=== PATIENT | male | born 1940 | race Caucasian/White ===

== ENCOUNTER → 2017-06-30 13:51 | Outpatient (CLI) | payer MEDICARE, OTHER, SELFPAY ==
--- NOTE | 2017-06-30 14:06 | CA_ITS ---
PROCEDURE: 2-D M-mode and color Doppler study INDICATIONS FOR THE TEST: Chest pain COPD Heart Murmur Tobacco Smoking Palpitations Fatigue Syncope Edema HypertensionXDiabetes MellitusX Rheumatic Fever SOB ALEMAN Obesity HyperlipidemiaX Family History HD Additional History CAD,PACEMAKER,CABG PATIENT INFORMATION HEIGHT: 73 WEIGHT:210 GENDER: Male B/P:133/77 2-D/M-MODE INTERPRETATION: 2-D MEASUREMENTS OBSERVED VALUES IN CMS Right Ventricular Dimension (RVDd) 1.4 Interventricular Septum (Thickness)(IVsd) 1.0 Left Ventricular Internal Dimensions(LVIDd) 7.3 Left Ventricular Posterior Wall (Thickness)(LVPWd) 1.0 Aortic Root 3.7 Aortic Cusp Separation 1.8 Left Atrial Dimensions (LAD) 3.9 2D 1. Left atrium is mildly enlarged, left ventricle is moderately dilated, there is severely reduced left ventricular systolic function, visually estimated ejection fraction 25-30%, there is marked hypokinesis involving the mid to distal septum, anterior, anteroapical and apical wall, inferobasal wall. 2. The right atrium and right ventricle are relatively normal size and function, there is a pacemaker lead seen in the right atrium and right ventricle. 3. The aortic valve is minimally thickened and fibrosed. 4. The mitral and tricuspid valve leaflets are minimally thickened. 5. The pulmonic valve is poorly visualized. 6. No significant pericardial effusion noted. DOPPLER INTERROGATION: Doppler interrogation of the aortic, mitral and tricuspid valvular presence of mild mitral and tricuspid regurgitation, tricuspid and jet velocity is insufficient for calculation of the right ventricular systolic pressure, diastolic parameters are inconclusive. CONCLUSION: 1. Technically difficult study because of the patient's factor and poor acoustic windows 2. Mildly enlarged left atrium, moderately dilated left ventricle, visually estimated ejection fraction of 25-30% with multiple segmental wall motion abnormality described above. 3. Mild mitral and tricuspid regurgitation 4. No significant pericardial effusion noted.
[2017-09-19 07:29] LABS: POC Glucose,Bedside 103 (70-110)
== END ==
PROVIDERS: Family Provider Internal Medicine; PCP Internal Medicine; Visit Provider Physician Assistant
DX: I25.10 Atherosclerotic heart disease of native coronary artery without angina pectoris (principal); I47.2 Ventricular tachycardia
CPT/HCPCS: 82962; 93306

== ENCOUNTER 2018-02-16 15:05 | Inpatient (IN) ==
--- NOTE | 2018-02-16 15:25 | Emergency Department Note ---
ED Disposition Clinical Impression: Fever of unknown origin, Viral infection Disposition: Admitted as Observation Condition on Discharge: Fair Time of Disposition: 20:13 - Critical Care Critical Care Time: No Attestation: On 02/16/18, the high probability of a clinically significant, sudden or life threatening deterioration of the following system(s) required my full and direct attention, intervention and personal management. The time I documented below is in addition to time spent performing reported procedures but includes the following listed in this critical care notation. Medical Decision Making - Medical Records Medical records reviewed: Yes: I reviewed the patient's medical records. - Christiano Inquiry Pt receiving controlled substance: No Christiano was queried for this patient: No Vital Signs: 02/16/18 15:07 02/16/18 15:17 02/16/18 16:11 Temperature 102.4 F H 102.4 F H Temperature Source Oral Oral Pulse Rate [Left Radial] 88 88 86 Respiratory Rate 24 24 101 H Blood Pressure [Right Arm] 116/63 116/63 106/60 L Blood Pressure Mean [Right Arm] 80 80 75 Blood Pressure Source [Right Arm] Automatic Cuff Automatic Cuff Blood Pressure Position [Right Arm] Sitting Sitting Sitting 02 Sat by Pulse Oximetry 96 96 98 Oxygen Delivery Method Room Air Room Air Nasal Cannula Oxygen Flow Rate (LPM) 2 02/16/18 17:40 02/16/18 19:31 02/16/18 19:38 Temperature 99.3 F 97.7 F Temperature Source Oral Oral Pulse Rate [Left Radial] 70 67 Respiratory Rate 20 22 Blood Pressure [Right Arm] 101/46 L 93/52 L Blood Pressure Mean [Right Arm] 64 65 Blood Pressure Source [Right Arm] Automatic Cuff Automatic Cuff Blood Pressure Position [Right Arm] Sitting Supine 02 Sat by Pulse Oximetry 95 97 Oxygen Delivery Method Room Air Nasal Cannula Nasal Cannula Oxygen Flow Rate (LPM) 4 - Lab Data Lab Results 02/16/18 15:20: WBC 5.0, RBC 4.09 L, Hgb 12.5 L, Hct 38.0 L, MCV 92.9, MCH 30.6, MCHC 32.9, RDW 13.4, Plt Count 262, MPV 7.5, Neut % (Auto) 76.2, Lymph % (Auto) 13.0, [place] % (Auto) 8.3, Eos % (Auto) 2.1, Baso % (Auto) 0.3, Neut # (Auto) 3.8, Lymph # (Auto) 0.7, [place] # (Auto) 0.4, Eos # (Auto) 0.1, Baso # (Auto) 0.0 02/16/18 15:20: Sodium 143, Potassium 3.5, Chloride 103, Carbon Dioxide 25, Anion Gap 18.5 H, BUN 17, Creatinine 1.74 H, Estimated Creat Clear 41, Estimated GFR 38 L, Est GFR ( Amer) 46 L, Glucose 112 H, Calcium 8.5, Total Bilirubin 0.6, AST 23, ALT 24, Alkaline Phosphatase 69, Total Protein 7.4, Albumin 3.8, Globulin 3.6 H, Albumin/Globulin Ratio 1.1 02/16/18 15:20: Lactate 3.5 H 02/16/18 16:00: Influenza Type A Ag Negative, Influenza Type B Ag Negative 02/16/18 17:48: Urine Color Yellow, Urine Appearance Clear, Urine pH 5.5, Ur Specific [place] >= 1.030, Urine Protein Trace, Urine Glucose (UA) Negative, Urine Ketones Negative, Urine Blood Negative, Urine Nitrate Negative, Urine Bilirubin Negative, Urine Urobilinogen 0.2, Ur Leukocyte Esterase Negative, Urine WBC 5-10, Ur Squamous Epith Cells Occasional, Urine Bacteria 4+ 02/16/18 19:15: Lactate 1.7 Result diagrams: 02/16/18 15:20 02/16/18 15:20 Orders (Tests/Meds): ED MEDICATIONS Generic Name Dose Route Start Last Admin Trade Name Freq PRN Reason Stop Dose Admin Sodium Chloride 1,000 mls @ 100 mls/hr 02/16/18 15:30 02/16/18 15:28 Sod Chlor 0.9% 1000ml Bag IV 03/18/18 15:29 100 mls/hr .Q10H ANDREW Administration Ceftriaxone Sodium 1 gm/ 50 mls @ 100 mls/hr 02/16/18 19:15 02/16/18 19:21 Sodium Chloride IV 03/02/18 19:14 100 mls/hr Q24H ANDREW Administration Protocol Discontinued Medications Generic Name Dose Route Start Last Admin Trade Name Freq PRN Reason Stop Dose Admin Acetaminophen 650 mg 02/16/18 15:22 02/16/18 15:27 Acetaminophen 325mg Tab PO 02/16/18 15:23 Not Given ONCE ONE Acetaminophen 650 mg 02/16/18 15:26 02/16/18 15:28 Acetaminophen 325mg Tab PO 02/16/18 15:27 650 mg ONCE ONE Administration Ondansetron HCl 4 mg 02/16/18 15:20 02/16/18 15:28 Zofran 4mg/2ml Vial IV 02/16/18 15:21 4 mg ONCE ONE Administration ORDERS Category Date Time Status UA [Urinalysis and Microscopic] Stat Lab 02/16/18 17:48 Ordered Blood Culture Stat Micro 02/16/18 15:20 Received Urine Culture Stat Micro 02/16/18 17:48 Received Fever HPI - General Chief Complaint: Fever Stated Complaint: fever Time Seen by Provider: 02/16/18 15:22 Mode of Arrival: Ambulatory Source of Information: Patient, Spouse Limitations: No Limitations Description of Symptoms (Recalled from ER Triage Doc. by RN): to ed per squad with c/o generalized weakness, confusion, fever. report states pt woke up at 5 am with confusion and difficulty walking. cpta none. - History of Present Illness MD complaint: fever, malaise, weakness, other (confusion) Onset (ago): hour(s) (10) Temperature Source: oral Associated symptoms: nausea, vomiting Relieving factors: nothing Exacerbating factors: nothing Treatments prior to arrival fever: none - Related Data Home Medications Medication Instructions Recorded Confirmed Bisoprolol Fumarate [Bisoprolol 2.5 mg PO DAILY 02/16/18 02/16/18 5mg Tablet] Metformin HCl 500 mg PO BID 02/16/18 02/16/18 Simvastatin 40 mg PO DAILY 02/16/18 02/16/18 levETIRAcetam [Levetiracetam] 750 mg PO BID 02/16/18 02/16/18 Allergies Allergy/AdvReac Type Severity Reaction Status Date / Time No Known Allergies Allergy Verified 02/16/18 15:16 [facility] History I have reviewed the patient's past medical history: Yes - Social History Alcohol Intake: never - Psychiatric History Expresses thoughts of harming self/others: None Suicide Plan Description: No Plan ROS Obtained: Yes All systems reviewed & no additional complaints - Constitutional Constitutional: Reports system reviewed and no additional complaints, except as docu - Eyes Eyes: Reports system reviewed and no additional complaints, except as docu - ENT Ears, Nose, Mouth, and Throat: Reports system reviewed and no additional complaints, except as docu - Cardiovascular Cardiovascular: Reports system reviewed and no additional complaints, except as docu - Respiratory Respiratory: Yes system reviewed and no additional complaints, except as docu, No cough, No dyspnea - Gastrointestinal Gastrointestingal: Reports: nausea, vomiting. Denies: abdominal pain, diarrhea - Genitourinary Male Genitourinary: Denies difficulty urinating, Denies urinary frequency, Denies urinary hesitancy, Denies urinary urgency - Musculoskeletal Musculoskeletal: Reports muscle weakness - Neurologic Neurologic: Reports system reviewed and no additional complaints, except as docu, Denies abnormal speech, Reports confusion, Denies dizziness, Denies focal weakness, Denies headache(s), Denies syncope, Reports weakness Physical Exam - General General appearance: alert, in no apparent distress - Head Head exam: atraumatic, normocephalic, normal inspection - Eye Eye exam: Present: normal appearance, PERRL, EOMI - ENT ENT exam: Present: normal exam, normal oropharynx, mucous membranes moist, TM's normal bilaterally, normal external ear exam - Neck Neck exam: Present: normal inspection, full ROM, trachea midline. Absent: meningismus, lymphadenopathy - Respiratory Respiratory exam: Present: normal lung sounds bilaterally. Absent: respiratory distress - Cardiovascular Cardiovascular exam: Present: regular rate, normal rhythm. Absent: JVD - Abdominal Exam Abdominal exam: Present: soft, normal bowel sounds. Absent: distention, tenderness, guarding - Neurological Exam Neurological exam: Present: alert, oriented X3 - Psychiatric Psychiatric exam: Present: normal affect, normal mood - Skin Skin exam: Present: warm, dry, intact, normal color
[2018-02-16 15:36] LABS: Basophils % 0.3 % (0.1-2.0); Eosinophils # 0.1 K/mm3 (0.0-0.4); Eosinophils % 2.1 % (0.1-12.0); Hemoglobin 12.5 g/dL (14.1-18.0); Lymphocytes # 0.7 K/mm3 (0.7-4.5); Mean Corpuscular HGB Conc 32.9 g/dL (31.8-35.4); Mean Corpuscular Hemoglobin 30.6 pg (27.0-31.2); Mean Corpuscular Volume 92.9 fl (80-94); Mean Platelet Volume 7.5 fl (7.4-10.4); Monocytes # 0.4 K/mm3 (0.1-1.0); Monocytes % 8.3 % (1.7-9.3); Neutrophils # 3.8 K/mm3 (1.8-7.8); Neutrophils % 76.2 % (37.0-80.0); Platelet Count 262 K/mm3 (142-424); Red Blood Count 4.09 M/mm3 (4.60-6.20); Red Cell Distribution Width 13.4 % (11.5-17.5)
[2018-02-16 15:46] LABS: Albumin Level 3.8 gm/dL (3.4-5.0); Albumin/Globulin Ratio 1.1 (1.1-1.8); Anion Gap 18.5 mEq/L (5-15); Bilirubin,Total 0.6 mg/dL (0.2-1.0); Calcium 8.5 mg/dL (8.5-10.1); Globulin 3.6 gm/dl (1.3-3.2); Potassium 3.5 mmoL/L (3.5-5.1); Total Protein,Serum 7.4 gm/dL (6.4-8.2)
[2018-02-16 17:53] LABS: Microscopic, Urine URINE MICROSCOPIC (MICROSCOPIC)
[2018-02-16 17:58] LABS: Appearance,Urine CLEAR (Clear); Bilirubin,Urine Negative (Negative); Blood, Urine Negative (Negative); Color,Urine YELLOW (Yellow); Glucose,Urine (UA) Negative (Negative); Ketones,Urine Negative (Negative); Leukocyte Esterase,Urine Negative (Negative); PH,Urine 5.5 (5.0-8.5); Protein,Urine TRACE (Negative); Specific Gravity, Urine >= 1.030 (1.005-1.030); Urobilinogen,Urine 0.2 EU/dl (0.2)
[2018-02-16 18:10] LABS: Bacteria,Urine 4+ /lpf; Squamous Epithelial Cell,Urine Occasional #/hpf (0-5)
[2018-02-17 07:01] LABS: Basophils % 0.3 % (0.1-2.0); Eosinophils % 0.8 % (0.1-12.0); Hematocrit 33.3 % (42.0-52.0); Lymphocytes # 0.7 K/mm3 (0.7-4.5); Lymphocytes % 23.5 K/mm3 (10-50); Mean Corpuscular HGB Conc 32.6 g/dL (31.8-35.4); Mean Corpuscular Hemoglobin 30.6 pg (27.0-31.2); Mean Corpuscular Volume 93.8 fl (80-94); Mean Platelet Volume 7.5 fl (7.4-10.4); Monocytes # 0.3 K/mm3 (0.1-1.0); Neutrophils # 1.9 K/mm3 (1.8-7.8); Neutrophils % 64.4 % (37.0-80.0); Platelet Count 202 K/mm3 (142-424); Red Blood Count 3.55 M/mm3 (4.60-6.20); Red Cell Distribution Width 13.6 % (11.5-17.5); White Blood Count 2.9 K/mm3 (4.8-10.8)
[2018-02-17 07:27] LABS: Hemoglobin 10.9 g/dL (14.1-18.0)
[2018-02-17 07:51] LABS: Calcium 7.6 mg/dL (8.5-10.1)
--- NOTE | 2018-02-17 07:53 | Pharmacy Consult Notes ---
[facility] Pharmacy VTE Monitoring - Patient Demographics Admission date: 02/16/18 Report Date: 02/17/18 Time: 07:52 Allergies/Adverse Reactions: Patient Allergies No Known Allergies Allergy (Verified 02/16/18 15:16) Height: 1.85 m Weight: 94.064 kg Patient Problems: Current Active Problems Fever of unknown origin (Acute) Viral infection (Acute) - VTE Risk Labs: VTE Related Lab Results Hgb 10.9 g/dL (14.1-18.0) L D 02/17/18 06:02 Hct 33.3 % (42.0-52.0) L 02/17/18 06:02 Plt Count 202 K/mm3 (142-424) 02/17/18 06:02 BUN 14 mg/dL (7-18) 02/17/18 06:02 Creatinine 1.52 mg/dL (0.70-1.30) H 02/17/18 06:02 Estimated Creat Clear 55 mL/min (0-300) 02/17/18 06:02 VTE Score: 9 VTE Risk Level: Moderate Risk - Prophylaxis VTE Prophylaxis Ordered?: Yes Types of VTE Prophylaxis: TEDS Knee High Location of Applied Device: Bilateral Lower Extremeties - VTE Diagnosis Confirmed Treatment or plan recommended: Continue Current Treatment
--- NOTE | 2018-02-17 09:10 | History & Physical Report ---
*Admission Date: 02/16/18 *Chief complaint: fever and weakness *History of present illness: 77-year-old male who presented with fever and weakness of 2 days. Patient presented yesterday afternoon to the ER at approximately 3 PM. He was brought by ambulance after his noted that he was less oriented and having more difficulty getting out of his chair, with global weakness. In the ER the patient was found to be frankly febrile to 102. Workup was fairly unremarkable except for significant bacteriuria oriented to only person. Specific gravity quite concentrated for dehydration. Additionally had elevated creatinine, with unknown baseline. Denies any nausea, shortness of breath, chest pain, syncope, loss of consciousness, worsening lower extremity edema, diarrhea, vomiting Mr. Sanchez is a patient of Dr. Emmett ruiz. His medical history is positive for renal arteries, hypertension, CKD, hyperlipidemia, diabetes, coronary artery disease, CABG x4 in 2009. Congestive heart failure with reduced ejection fraction (most recent echo in June 2017 EF 25-30%). Additionally his adds that he was diagnosed with prostate cancer 6+ years ago. 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 No previous diagnosis of cognitive impairment however 's concern that fredy trin[place] is more confused than usual. When asked about level of functioning, she states the patient spends his time in his chair at home or going to the bathroom. He leaves the house for doctor's appointments only. She performs all of the housekeeping responsibilities including paying the bills, balancing the checkbook, shopping, driving. She states that her is not able to perform these and has not been for several years. Of note during interview, he consistently defers to her for answers. He is very pleasant and cooperative, but easily distractible. [facility] History I have reviewed the patient's past medical history: Yes Medical History: Reports:: Cancer (prostate), Diabetes Mellitus Type 1, Myocardial Infarction Denies:: Diabetes Mellitus Type 2, MRSA Other Surgeries: Yes: CABG Amputation: No Fractures: No - *Social History Educational Level: Completed High School Alcohol Intake: never Occupational Status: retired Housing: house Household Members: significant other - Psychiatric History Expresses thoughts of harming self/others: None Suicide Plan Description: No Plan *Family Hx:: Cancer, Coronary Artery Disease, Diabetes, Heart Attack, Hyperlipidemia, Hypertension, Stroke Review of Systems - Review of Systems Review of systems:: pertinent systems reviewed and negative unless documented below - *Neurologic Reports confusion, Reports weakness, Denies abnormal speech, Denies dizziness, Denies localized weakness, Denies headache(s), Denies fainting Meds Home Medications Medication Instructions Recorded Confirmed Type Bisoprolol Fumarate [Bisoprolol 2.5 mg PO DAILY 02/16/18 02/16/18 History 5mg Tablet] Metformin HCl 500 mg PO BID 02/16/18 02/16/18 History Simvastatin 40 mg PO HS 02/16/18 02/17/18 History levETIRAcetam [Levetiracetam] 750 mg PO BID 02/16/18 02/16/18 History Aspirin [Aspirin 81mg EC Tab] 81 mg PO DAILY 02/17/18 02/17/18 History Allergies Allergy/AdvReac Type Severity Reaction Status Date / Time No Known Allergies Allergy Verified 02/16/18 15:16 Exam Vital signs and Labs for Last 24 Hours: Temp Pulse Resp BP Pulse Ox 99.0 F 64 16 119/66 98 02/17/18 04:00 02/17/18 04:00 02/17/18 04:00 02/17/18 04:00 02/17/18 04:00 Laboratory Results - last 24 hr 02/16/18 15:20: WBC 5.0, RBC 4.09 L, Hgb 12.5 L, Hct 38.0 L, MCV 92.9, MCH 30.6, MCHC 32.9, RDW 13.4, Plt Count 262, MPV 7.5, Neut % (Auto) 76.2, Lymph % (Auto) 13.0, [place] % (Auto) 8.3, Eos % (Auto) 2.1, Baso % (Auto) 0.3, Neut # (Auto) 3.8, Lymph # (Auto) 0.7, [place] # (Auto) 0.4, Eos # (Auto) 0.1, Baso # (Auto) 0.0 02/16/18 15:20: Sodium 143, Potassium 3.5, Chloride 103, Carbon Dioxide 25, Anion Gap 18.5 H, BUN 17, Creatinine 1.74 H, Estimated Creat Clear 41, Estimated GFR 38 L, Est GFR ( Amer) 46 L, Glucose 112 H, Calcium 8.5, Total Bilirubin 0.6, AST 23, ALT 24, Alkaline Phosphatase 69, Total Protein 7.4, Albumin 3.8, Globulin 3.6 H, Albumin/Globulin Ratio 1.1 02/16/18 15:20: Lactate 3.5 H 02/16/18 16:00: Influenza Type A Ag Negative, Influenza Type B Ag Negative 02/16/18 17:48: Urine Color Yellow, Urine Appearance Clear, Urine pH 5.5, Ur Specific [place] >= 1.030, Urine Protein Trace, Urine Glucose (UA) Negative, Urine Ketones Negative, Urine Blood Negative, Urine Nitrate Negative, Urine Bilirubin Negative, Urine Urobilinogen 0.2, Ur Leukocyte Esterase Negative, Urine WBC 5-10, Ur Squamous Epith Cells Occasional, Urine Bacteria 4+ 02/16/18 19:15: Lactate 1.7 02/16/18 21:32: POC Glucose 142 H 02/17/18 06:02: WBC 2.9 L D, RBC 3.55 L, Hgb 10.9 L D, Hct 33.3 L, MCV 93.8, MCH 30.6, MCHC 32.6, RDW 13.6, Plt Count 202, MPV 7.5, Neut % (Auto) 64.4, Lymph % (Auto) 23.5, [place]elope % (Auto) 11.0 H, Eos % (Auto) 0.8, Baso % (Auto) 0.3, Neut # (Auto) 1.9, Lymph # (Auto) 0.7, [place] # (Auto) 0.3, Eos # (Auto) 0.0, Baso # (Auto) 0.0 02/17/18 06:02: Sodium 144, Potassium 4.0, Chloride 106, Carbon Dioxide 29, Anion Gap 13.0, BUN 14, Creatinine 1.52 H, Estimated Creat Clear 55, Estimated GFR 45 L, Est GFR ( Amer) 54 L, Glucose 100, Calcium 7.6 L D 02/17/18 06:40: POC Glucose 113 H I & O for Last 24 hours: Intake & Output 02/14/18 02/15/18 02/16/18 02/17/18 23:59 23:59 23:59 23:59 Output Total 700 / 700 Balance -700 / -700 Weight 94.064 kg 94.064 kg - Constitutional no acute distress, thin, cooperative - *Routine HEENT Exam Head: Present: normocephalic, atraumatic Eye: Present: EOMI, PERRL ENT: Present: mucous membranes moist - *Routine Neck Exam Present: supple, full ROM. Absent: JVD, lymphadenopathy - *Routine Respiratory Exam Present: CTA bilaterally. Absent: prolonged expiratory phase, wheezes, crackles - *Routine Cardiovascular Exam Present: RRR, murmur - *Routine Abdominal Exam Present: soft, normoactive bowel sounds. Absent: tenderness - *Routine Rectal Exam Patient deferred: visual exam - *Routine Exam Patient deferred: penile exam - *Routine Extremities Exam Present: edema. Absent: cyanosis, clubbing - *Routine Skin Exam Present: intact. Absent: cyanosis, erythema - *Routine Neurological Exam Present: alert, altered mental status Patient is pleasant cooperative, alert to person. Performed Mitul cognitive assessment tool with patient. He scored a 12/30 indicating significant cognitive impairment. - Routine Psychiatric Exam Present: normal affect, cooperative. Absent: good insight Assessment and Plan (1) Bacteriuria Current visit: Yes Status: Acute Category: Medical Code(s): R82.71 - Bacteriuria Suspect patient may have urinary tract infection even with urine with negative leuk esterase and nitrate. Urine culture pending. Initiated on ceftriaxone at time of admission. Plan to continue pending culture results (2) [id number] kidney injury Current visit: Yes Status: Acute Category: Medical Code(s): N17.9 - Acute kidney failure, unspecified; N18.9 - Chronic kidney disease, unspecified Unknown baseline, but per report has been elevated with chronic kidney disease. -Improving with fluid hydration -Monitor with morning lab -Avoid nephrotoxic's (3) Heart failure with reduced ejection fraction, NYHA class III Current visit: Yes Status: Chronic Category: Medical Code(s): I50.20 - Unspecified systolic (congestive) heart failure Echo from June with EF 25-30% -We will have patient follow-up closely as outpatient with cardiology for consideration of ICD placement -Do not suspect acute exacerbation -Continue home medications including bisoprolol (4) Hypertension Current visit: Yes Status: Chronic Qualifiers: Hypertension type: renovascular hypertension Qualified Code(s): I15.0 - Renovascular hypertension Category: Medical Code(s): I10 - Essential (primary) hypertension Continue home regimen (5) Diabetes Current visit: Yes Status: Chronic Qualifiers: Diabetes mellitus type: type 2 Diabetes mellitus half-way insulin use: without terminal superintendent use Diabetes mellitus complication status: with circulatory complication Diabetes mellitus complication detail: with other circulatory complications Qualified Code(s): E11.59 - Type 2 diabetes mellitus with other circulatory complications Category: Medical Code(s): E11.9 - Type 2 diabetes mellitus without complications Patient only on metformin at home. Will hold during inpatient admission. -Initiated on sliding scale insulin with fingersticks before meals and at bedtime (6) Severe sepsis Current visit: Yes Status: Acute Category: Medical Code(s): A41.9 - Sepsis, unspecified organism; R65.20 - Severe sepsis without septic shock Patient had fever, lactate, leukopenia, suspected source with urine. Lactate improved with rehydration. Fever to antibiotics. Continue ceftriaxone pending urine culture (7) Dementia Current visit: Yes Status: Chronic Qualifiers: Dementia type: vascular dementia Category: Medical Code(s): F03.90 - Unspecified dementia without behavioral disturbance Mitul cognitive assessment with concerning results of 05/14 -Initiate donepezil while admitted -Will need close follow-up with primary care for further assessment and continuation of medication -Suspect patient has had cognitive decline for many years and family has been in denial. quite tearful during diagnosis today. -Complicates all aspects of patient care -Increased risk for dementia during admission - Assessment and plan all Dx Assessment and Plan for all problems:: Concern for significant debility and cognitive decline. PT and OT consulted for assessment and recommendations. Continues to require inpatient medical management pending urine culture results and final plan for antibiotics. -Family has declined any prison placement as the would just like to take her home and care for him there.
[2018-02-18 06:44] LABS: Basophils % 0.3 % (0.1-2.0); Eosinophils # 0.2 K/mm3 (0.0-0.4); Eosinophils % 4.2 % (0.1-12.0); Hematocrit 33.3 % (42.0-52.0); Hemoglobin 11.9 g/dL (14.1-18.0); Lymphocytes # 1.3 K/mm3 (0.7-4.5); Lymphocytes % 23.8 K/mm3 (10-50); Mean Corpuscular HGB Conc 35.7 g/dL (31.8-35.4); Mean Corpuscular Hemoglobin 33.1 pg (27.0-31.2); Mean Corpuscular Volume 92.7 fl (80-94); Mean Platelet Volume 7.9 fl (7.4-10.4); Monocytes # 0.4 K/mm3 (0.1-1.0); Monocytes % 7.1 % (1.7-9.3); Neutrophils # 3.4 K/mm3 (1.8-7.8); Neutrophils % 64.6 % (37.0-80.0); Platelet Count 191 K/mm3 (142-424); Red Blood Count 3.59 M/mm3 (4.60-6.20); Red Cell Distribution Width 13.4 % (11.5-17.5); White Blood Count 5.2 K/mm3 (4.8-10.8)
[2018-02-18 06:52] LABS: Anion Gap 12.4 mEq/L (5-15); Calcium 7.6 mg/dL (8.5-10.1); Potassium 3.4 mmoL/L (3.5-5.1)
--- NOTE | 2018-02-18 06:55 | Progress Note ---
Internal Medicine - PN: Subj *Date: 02/18/18 *Time: 06:54 Interval history: Patient is awake this morning. Disoriented as previously noted. Complains of some heartburn. Denies chest pain or shortness of air. Exam Vital signs and Labs for Last 24 Hours: Temp Pulse Resp BP Pulse Ox 98.6 F 75 18 125/64 93 L 02/18/18 04:00 02/18/18 04:00 02/18/18 04:00 02/18/18 04:00 02/18/18 04:00 Laboratory Results - last 24 hr 02/17/18 06:02: WBC 2.9 L D, RBC 3.55 L, Hgb 10.9 L D, Hct 33.3 L, MCV 93.8, MCH 30.6, MCHC 32.6, RDW 13.6, Plt Count 202, MPV 7.5, Neut % (Auto) 64.4, Lymph % (Auto) 23.5, [place] % (Auto) 11.0 H, Eos % (Auto) 0.8, Baso % (Auto) 0.3, Neut # (Auto) 1.9, Lymph # (Auto) 0.7, [place] # (Auto) 0.3, Eos # (Auto) 0.0, Baso # (Auto) 0.0 02/17/18 06:02: Sodium 144, Potassium 4.0, Chloride 106, Carbon Dioxide 29, Anion Gap 13.0, BUN 14, Creatinine 1.52 H, Estimated Creat Clear 55, Estimated GFR 45 L, Est GFR ( Amer) 54 L, Glucose 100, Calcium 7.6 L D 02/17/18 06:40: POC Glucose 113 H 02/17/18 11:54: POC Glucose 113 H 02/17/18 17:04: POC Glucose 137 H 02/17/18 20:25: POC Glucose 120 H 02/18/18 06:34: WBC 5.2 D, RBC 3.59 L, Hgb 11.9 L, Hct 33.3 L, MCV 92.7, MCH 33.1 H, MCHC 35.7 H, RDW 13.4, Plt Count 191, MPV 7.9, Neut % (Auto) 64.6, Lymph % (Auto) 23.8, [place] % (Auto) 7.1, Eos % (Auto) 4.2, Baso % (Auto) 0.3, Neut # (Auto) 3.4, Lymph # (Auto) 1.3, [place] # (Auto) 0.4, Eos # (Auto) 0.2, Baso # (Auto) 0.0 02/18/18 06:35: POC Glucose 118 H I & O for Last 24 hours: Intake & Output 02/15/18 02/16/18 02/17/18 02/18/18 11:59 11:59 11:59 11:59 Intake Total 240 / 240 880 / 880 Output Total 1400 / 1400 2800 / 2800 Balance -1160 / -1160 -1920 / -1920 Weight 207 lb 6 oz 212 lb 2 oz Microbiology Reports for the Last 24 Hours: Microbiology 02/16/18 17:48 Urine,Catheterized Urine Culture - Preliminary NO GROWTH AFTER 24 HOURS Narrative: Fever curve has improved. Lab reports are pending. Heart rate regular. Abdomen soft, lungs clear. Patient able to move all extremities. Assessment and Plan (1) Bacteriuria Current visit: Yes Status: Acute Category: Medical Code(s): R82.71 - B acteriuria (2) Tkngv-sj-gvkhdko kidney injury Current visit: Yes Status: Acute Category: Medical Code(s): N17.9 - Acute kidney failure, unspecified; N18.9 - Chronic kidney disease, unspecified (3) Heart failure with reduced ejection fraction, NYHA class III Current visit: Yes Status: Chronic Category: Medical Code(s): I50.20 - Unspecified systolic (congestive) heart failure (4) Hypertension Current visit: Yes Status: Chronic Qualifiers: Hypertension type: renovascular hypertension Qualified Code(s): I15.0 - Renovascular hypertension Category: Medical Code(s): I10 - Essential (primary) hypertension (5) Diabetes Current visit: Yes Status: Chronic Qualifiers: Diabetes mellitus type: type 2 Diabetes mellitus superintendent container terminal insulin use: without fpc use Diabetes mellitus complication status: with circulatory complication Diabetes mellitus complication detail: with other circulatory complications Qualified Code(s): E11.59 - Type 2 diabetes mellitus with other circulatory complications Category: Medical Code(s): E11.9 - Type 2 diabetes mellitus without complications (6) Severe sepsis Current visit: Yes Status: Acute Category: Medical Code(s): A41.9 - Sepsis, unspecified organism; R65.20 - Severe sepsis without septic shock (7) Dementia Current visit: Yes Status: Chronic Qualifiers: Dementia type: vascular dementia Category: Medical Code(s): F03.90 - Unspecified dementia without behavioral disturbance - Assessment and plan all Dx Assessment and Plan for all problems:: Continue with current plan as outlined in H&P. Maalox for heartburn. Await blood cultures. Continue dementia medication that was started yesterday. Probable viral illness but await blood cultures for confirmation.
[2018-02-19 06:34] LABS: Albumin Level 2.7 gm/dL (3.4-5.0); Albumin/Globulin Ratio 0.9 (1.1-1.8); Anion Gap 10.4 mEq/L (5-15); Bilirubin,Total 0.3 mg/dL (0.2-1.0); Potassium 3.4 mmoL/L (3.5-5.1); Total Protein,Serum 5.7 gm/dL (6.4-8.2)
[2018-02-19 06:47] LABS: Basophils % 0.5 % (0.1-2.0); Eosinophils # 0.3 K/mm3 (0.0-0.4); Eosinophils % 7.8 % (0.1-12.0); Hematocrit 32.7 % (42.0-52.0); Hemoglobin 10.8 g/dL (14.1-18.0); Lymphocytes # 1.2 K/mm3 (0.7-4.5); Lymphocytes % 27.7 K/mm3 (10-50); Mean Corpuscular HGB Conc 33.1 g/dL (31.8-35.4); Mean Corpuscular Hemoglobin 30.8 pg (27.0-31.2); Mean Platelet Volume 7.3 fl (7.4-10.4); Monocytes # 0.4 K/mm3 (0.1-1.0); Monocytes % 8.9 % (1.7-9.3); Neutrophils # 2.4 K/mm3 (1.8-7.8); Neutrophils % 55.1 % (37.0-80.0); Platelet Count 192 K/mm3 (142-424); Red Blood Count 3.52 M/mm3 (4.60-6.20); Red Cell Distribution Width 13.5 % (11.5-17.5); White Blood Count 4.3 K/mm3 (4.8-10.8)
--- NOTE | 2018-02-19 07:45 | Progress Note ---
Internal Medicine - PN: Subj *Date: 02/19/18 *Time: 07:43 Interval history: Patient had a couple episodes of loose stools through the day yesterday, nursing staff was unable to capture any of these for PCR testing according to our "Diarrhea Decision Tree Protocol" but they note that there is not an odor consistent with C. difficile. Through the night the patient did not have any stools. Patient has no complaints today as usual, but is an unreliable historian. His has not been present on my rounds. Exam Vital signs and Labs for Last 24 Hours: Temp Pulse Resp BP Pulse Ox 98.1 F 64 18 113/62 94 L 02/19/18 04:00 02/19/18 04:00 02/19/18 04:00 02/19/18 04:00 02/19/18 04:00 Laboratory Results - last 24 hr 02/18/18 11:18: POC Glucose 153 H 02/18/18 16:23: POC Glucose 124 H 02/18/18 20:39: POC Glucose 140 H 02/19/18 05:45: WBC 4.3 L, RBC 3.52 L, Hgb 10.8 L, Hct 32.7 L, MCV 93.0, MCH 30.8, MCHC 33.1, RDW 13.5, Plt Count 192, MPV 7.3 L, Neut % (Auto) 55.1, Lymph % (Auto) 27.7, [place] % (Auto) 8.9, Eos % (Auto) 7.8, Baso % (Auto) 0.5, Neut # (Auto) 2.4, Lymph # (Auto) 1.2, [place] # (Auto) 0.4, Eos # (Auto) 0.3, Baso # (Auto) 0.0 02/19/18 05:45: Sodium 145, Potassium 3.4 L, Chloride 111 H, Carbon Dioxide 27, Anion Gap 10.4, BUN 13, Creatinine 1.31 H, Estimated Creat Clear 66, Estimated GFR 53 L, Est GFR ( Amer) 64 D, Glucose 109 H, Calcium 7.0 L, Total Bilirubin 0.3, AST 23, ALT 19, Alkaline Phosphatase 59, Total Protein 5.7 L, Albumin 2.7 L, Globulin 3.0, Albumin/Globulin Ratio 0.9 L 02/19/18 06:04: POC Glucose 110 I & O for Last 24 hours: Intake & Output 02/16/18 02/17/18 02/18/18 02/19/18 11:59 11:59 11:59 11:59 Intake Total 240 / 240 2335 / 2335 120 / 120 Output Total 1400 / 1400 2800 / 2800 1600 / 1600 Balance -1160 / -1160 -465 / -465 -1480 / -1480 Weight 207 lb 6 oz 212 lb 2 oz 214 lb 4 oz Microbiology Reports for the Last 24 Hours: Microbiology 02/16/18 17:48 Urine,Catheterized Urine Culture - Final NO GROWTH AFTER 48 HOURS 02/16/18 15:20 Blood Blood Culture - Preliminary NO GROWTH AFTER 48 HOURS 02/16/18 15:20 Blood Blood Culture - Preliminary NO GROWTH AFTER 48 HOURS Narrative: Abdomen soft, nontender. Is moist and clear. No JVD. Heart rate regular, anterior lung julian are clear. He has no edema. Able to move his extremities well. He is talkative but clearly demented. Assessment and Plan (1) Bacteriuria Current visit: Yes Status: Acute Category: Medical Code(s): R82.71 - Bact eriuria Surprisingly urine cultures have been no growth. Await these results one more day. At that point consider discontinuing antibiotics. (2) Rgkgz-nq-cwxzwqy kidney injury Current visit: Yes Status: Acute Category: Medical Code(s): N17.9 - Acute kidney failure, unspecified; N18.9 - Chronic kidney disease, unspecified Creatinine continues to improve this morning down to 1.3. (3) Heart failure with reduced ejection fraction, NYHA class III Current visit: Yes Status: Chronic Category: Medical Code(s): I50.20 - Unspecified systolic (congestive) heart failure Currently euvolemic. (4) Hypertension Current visit: Yes Status: Chronic Qualifiers: Hypertension type: renovascular hypertension Qualified Code(s): I15.0 - Renovascular hypertension Category: Medical Code(s): I10 - Essential (primary) hypertension (5) Diabetes Current visit: Yes Status: Chronic Qualifiers: Diabetes mellitus type: type 2 Diabetes mellitus alf insulin use: without alf use Diabetes mellitus complication status: with circulatory complication Diabetes mellitus complication detail: with other circulatory complications Qualified Code(s): E11.59 - Type 2 diabetes mellitus with other circulatory complications Category: Medical Code(s): E11.9 - Type 2 diabetes mellitus without complications (6) Severe sepsis Current visit: Yes Status: Acute Category: Medical Code(s): A41.9 - Sepsis , unspecified organism; R65.20 - Severe sepsis without septic shock (7) Dementia Current visit: Yes Status: Chronic Qualifiers: Dementia type: vascular dementia Category: Medical Code(s): F03.90 - Unspecified dementia without behavioral disturbance We started patient on Aricept. No toxicity at this point. Loose stools could possibly be a side effect of this but this seems to be fairly minimal. Patient seems to be a candidate for discharge from hospital tomorrow however I think his will need significant help at home versus possible long-term care placement. I have asked care management staff to investigate.
--- NOTE | 2018-02-19 12:52 | Discharge Summary ---
General - General Admission date:: 02/16/18 Discharge date: 02/20/18 HPI HPI: 77-year-old male who presented with fever and weakness of 2 days. Patient presented yesterday afternoon to the ER at approximately 3 PM. He was brought by ambulance after his noted that he was less oriented and having more difficulty getting out of his chair, with global weakness. In the ER the patient was found to be frankly febrile to 102. Workup was fairly unremarkable except for significant bacteriuria oriented to only person. Specific gravity quite concentrated for dehydration. Additionally had elevated creatinine, with unknown baseline. Denies any nausea, shortness of breath, chest pain, syncope, loss of consciousness, worsening lower extremity edema, diarrhea, vomiting Mr. Sanchez is a patient of Dr. Emmett ruiz. His medical history is positive for renal arteries, hypertension, CKD, hyperlipidemia, diabetes, coronary artery disease, CABG x4 in 2009. Congestive heart failure with reduced ejection fraction (most recent echo in June 2017 EF 25-30%). Additionally his adds that he was diagnosed with prostate cancer 6+ years ago. 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 No previous diagnosis of cognitive impairment however 's concern that patient is more confused than usual. When asked about level of functioning, she states the patient spends his time in his chair at home or going to the bathroom. He leaves the house for doctor's appointments only. She performs all of the housekeeping responsibilities including paying the bills, balancing the checkbook, shopping, driving. She states that her is not able to perform these and has not been for several years. Of note during interview, he consistently defers to her for answers. He is very pleasant and cooperative, but easily distractible. Hospital Course Hospital Course: Mr. Sanchez is a 77yo M admitted for fever, weakness, and confusion. Initial work-up concerning for dehydration, UTI, and ROSALINA on CKD. Patient rehydrated with IVF, initiated on IV abx, UC sent. Additionally, cognitive assessment performed. MOCA results 05/14. This was concerning for undiagnosed dementia. Pt responded well to IVF and Abx with resolution of fever and improvement in ROSALINA. Transitioned to PO intake. Asssessmen tby PT/OT found patient to be at his baseline level of ambulation and function. Urine culture returned negative. Abx discontinued on Day of Discharge. Family declined home health PT/Services, or NH placement even temporarily. Patient remained hemodynamically stable, no further events during admission. Medically stable for discharge home. Objective Vital signs: Temp Pulse Resp BP Pulse Ox 98.1 F 64 20 124/62 96 02/19/18 08:00 02/19/18 08:00 02/19/18 08:00 02/19/18 08:00 02/19/18 08:00 - *Routine HEENT Exam Head: Present: normocephalic, atraumatic Eye: Present: EOMI, PERRL ENT: Present: mucous membranes moist - *Routine Neck Exam Present: supple, full ROM. Absent: JVD - *Routine Respiratory Exam Present: CTA bilaterally. Absent: prolonged expiratory phase, rales - *Routine Cardiovascular Exam Present: RRR, Normal S1. Absent: murmur - *Routine Abdominal Exam Present: soft - *Routine Rectal Exam Patient deferred: visual exam - *Routine Exam Patient deferred: penile exam - *Routine Extremities Exam Present: edema (trace). Absent: cyanosis, clubbing - *Routine Skin Exam Present: intact. Absent: cyanosis, erythema - *Routine Neurological Exam Present: alert, CN II-XII intact oriented to self and place Results Labs on day of discharge: Labs from last 24 hours 02/19/18 02/19/18 02/19/18 11:37 06:04 05:45 WBC RBC Hgb Hct MCV MCH MCHC RDW Plt Count MPV Neut % (Auto) Lymph % (Auto) [place] % (Auto) Eos % (Auto) Baso % (Auto) Neut # (Auto) Lymph # (Auto) [place] # (Auto) Eos # (Auto) Baso # (Auto) Sodium 145 Potassium 3.4 L Chloride 111 H Carbon Dioxide 27 Anion Gap 10.4 BUN 13 Creatinine 1.31 H Estimated Creat Clear 66 Estimated GFR 53 L Est GFR ( Amer) 64 D Glucose 109 H POC Glucose 151 H 110 Calcium 7.0 L Total Bilirubin 0.3 AST 23 ALT 19 Alkaline Phosphatase 59 Total Protein 5.7 L Albumin 2.7 L Globulin 3.0 Albumin/Globulin Ratio 0.9 L 02/19/18 02/18/18 02/18/18 05:45 20:39 16:23 WBC 4.3 L RBC 3.52 L Hgb 10.8 L Hct 32.7 L MCV 93.0 MCH 30.8 MCHC 33.1 RDW 13.5 Plt Count 192 MPV 7.3 L Neut % (Auto) 55.1 Lymph % (Auto) 27.7 [place] % (Auto) 8.9 Eos % (Auto) 7.8 Baso % (Auto) 0.5 Neut # (Auto) 2.4 Lymph # (Auto) 1.2 [place] # (Auto) 0.4 Eos # (Auto) 0.3 Baso # (Auto) 0.0 Sodium Potassium Chloride Carbon Dioxide Anion Gap BUN Creatinine Estimated Creat Clear Estimated GFR Est GFR ( Amer) Glucose POC Glucose 140 H 124 H Calcium Total Bilirubin AST ALT Alkaline Phosphatase Total Protein Albumin Globulin Albumin/Globulin Ratio Preliminary micro results at discharge 02/16/18 15:20 Blood Culture - Preliminary Blood NO GROWTH AFTER 48 HOURS 02/16/18 15:20 Blood Culture - Preliminary Blood NO GROWTH AFTER 48 HOURS DS: Diagnosis - Discharge Diagnosis (1) Bacteriuria Status: Acute (2) Tlleh-jz-rmkswdf kidney injury Status: Acute (3) Heart failure with reduced ejection fraction, NYHA class III Status: Chronic (4) Hypertension Status: Chronic (5) Diabetes Status: Chronic (6) Severe sepsis Status: Acute (7) Dementia Status: Chronic Discharge Plan - Patient Discharge Instructions ACTIVITY: Continue current activity DIET: continue same diet - Follow up Plan Follow up with: Krishna Christine [Primary Care Provider] - 1 week Disposition: Home, Self-Long-Term Medications: Home Medications Medication Instructions Recorded Confirmed Type Bisoprolol Fumarate [Bisoprolol 2.5 mg PO DAILY 02/16/18 02/16/18 History 5mg Tablet] Metformin HCl 500 mg PO BID 02/16/18 02/16/18 History Simvastatin 40 mg PO HS 02/16/18 02/17/18 History levETIRAcetam [Levetiracetam] 750 mg PO BID 02/16/18 02/16/18 History Aspirin [Aspirin 81mg EC Tab] 81 mg PO DAILY 02/17/18 02/17/18 History Prescriptions/Medication Reconciliation: New Donepezil HCl [Aricept 5mg] 5 mg PO HS 30 Days #30 tablet Continue Simvastatin 40 mg PO HS Metformin HCl 500 mg PO BID levETIRAcetam [Levetiracetam] 750 mg PO BID Bisoprolol Fumarate [Bisoprolol 5mg Tablet] 2.5 mg PO DAILY Aspirin [Aspirin 81mg EC Tab] 81 mg PO DAILY
--- NOTE | 2018-02-20 07:30 | Progress Note ---
Internal Medicine - PN: Subj *Date: 02/20/18 *Time: 07:30 Exam Vital signs and Labs for Last 24 Hours: Temp Pulse Resp BP Pulse Ox 98.4 F 65 18 124/63 94 L 02/20/18 04:00 02/20/18 04:00 02/20/18 04:00 02/20/18 04:00 02/20/18 04:00 Laboratory Results - last 24 hr 02/19/18 11:37: POC Glucose 151 H 02/19/18 16:28: POC Glucose 145 H 02/19/18 20:02: POC Glucose 111 H I & O for Last 24 hours: Intake & Output 02/17/18 02/18/18 02/19/18 02/20/18 23:59 23:59 23:59 23:59 Intake Total 1120 / 1120 1575 / 1575 2006 1030 / 1030 Output Total 2750 / 2750 1450 / 1450 2300 / 2300 1200 / 1200 Balance -1630 / -1630 125 / 125 -293 / -293 -170 / -170 Weight 94.064 kg 96.218 kg 97.182 kg 98.43 kg Assessment and Plan (1) Bacteriuria Current visit: Yes Status: Acute Category: Medical Code(s): R82.71 - Bacteriuria (2) Xswum-tv-bspnxin kidney injury Current visit: Yes Status: Acute Category: Medical Code(s): N17.9 - Acute kidney failure, unspecified; N18.9 - Chronic kidney disease, unspecified (3) Heart failure with reduced ejection fraction, NYHA class III Current visit: Yes Status: Chronic Category: Medical Code(s): I50.20 - Unspecified systolic (congestive) heart failure (4) Hypertension Current visit: Yes Status: Chronic Qualifiers: Hypertension type: renovascular hypertension Qualified Code(s): I15.0 - Renovascular hypertension Category: Medical Code(s): I10 - Essential (primary) hypertension (5) Diabetes Current visit: Yes Status: Chronic Qualifiers: Diabetes mellitus type: type 2 Diabetes mellitus intermediate project manager insulin use: without intermediate project manager use Diabetes mellitus complication status: with circulatory complication Diabetes mellitus complication detail: with other circulatory complications Qualified Code(s): E11.59 - Type 2 diabetes mellitus with other circulatory complications Category: Medical Code(s): E11.9 - Type 2 diabetes mellitus without complications (6) Severe sepsis Current visit: Yes Status: Acute Category: Medical Code(s): A41.9 - Sepsis, unspecified organism; R65.20 - Severe sepsis without septic shock (7) Dementia Current visit: Yes Status: Chronic Qualifiers: Dementia type: vascular dementia Category: Medical Code(s): F03.90 - Unspecified dementia without behavioral disturbance The patient's infection will respond to the chosen ABx?: Yes Is the patient receiving the right drug, dose, and route?: Yes Could a more targeted ABx be ordered?: No (NO GROWTH IN BLOOD OR URINE OF THIS WRITING)
== END 2018-02-20 14:01 | disposition home or self-care (01) ==
LOC: ER 15:05 → 2ND 15:05 → OBSVTOIN 20:44 → 2ND 20:46
PROVIDERS: ADMIT Family Medicine; ATTEND Internal Medicine Adolescent Medicine
CPT/HCPCS: 36415; 71010; 71045; 80048; 80053; 81001; 82962; 83605; 83735; 85025; 87040; 87086; 87275; 87276; 94761; 96365; 96367; 96375; 97116; 97162; 97165; 97530; 99285; G0378; J2405

== ENCOUNTER 2019-04-01 10:44 | Inpatient (IN) ==
--- NOTE | 2019-04-01 11:09 | Emergency Department Note ---
ED Disposition Clinical Impression: Weakness, Hypokalemia, Pulmonary nodule, Liver mass Altered mental status Qualifiers: Altered mental status type: unspecified Qualified Code(s): R41.82 - Altered mental status, unspecified Ascites Qualifiers: Ascites type: other type Qualified Code(s): R18.8 - Other ascites Fecal incontinence Qualifiers: Fecal incontinence type: unspecified Qualified Code(s): R15.9 - Full inc ontinence of feces Urinary incontinence Qualifiers: Urinary Incontinence type: unspecified incontinence Qualified Code(s): R32 - Unspecified urinary incontinence Disposition: Admitted As Inpatient Condition on Discharge: Fair Referrals: Krishna Christine [Primary Care Provider] - - Critical Care Critical Care Time: No Attestation: On 04/01/19, the high probability of a clinically significant, sudden or life threatening deterioration of the following system(s) required my full and direct attention, intervention and personal management. The time I documented below is in addition to time spent performing reported procedures but includes the following listed in this critical care notation. Medical Decision Making - Christiano Inquiry Pt receiving controlled substance: No Vital Signs: 04/01/19 10:46 04/01/19 11:14 04/01/19 11:30 Temperature 97.7 F Temperature Source Oral Pulse Rate [Right Brachial] 74 67 67 Respiratory Rate 19 Blood Pressure [Right Arm] 140/70 140/80 136/81 Blood Pressure Mean [Right Arm] 93 100 99 Blood Pressure Source [Right Arm] Automatic Cuff Automatic Cuff Blood Pressure Position [Right Arm] Sitting Sitting 02 Sat by Pulse Oximetry 97 92 L 93 L Oxygen Delivery Method Room Air 04/01/19 12:00 04/01/19 13:00 04/01/19 13:30 Temperature Temperature Source Pulse Rate [Right Brachial] 65 66 63 Respiratory Rate Blood Pressure [Right Arm] 138/74 137/78 141/73 H Blood Pressure Mean [Right Arm] 95 97 95 Blood Pressure Source [Right Arm] Blood Pressure Position [Right Arm] 02 Sat by Pulse Oximetry 93 L 93 L 93 L Oxygen Delivery Method 04/01/19 14:00 04/01/19 14:30 Temperature Temperature Source Pulse Rate [Right Brachial] 64 67 Respiratory Rate Blood Pressure [Right Arm] 137/71 136/45 L Blood Pressure Mean [Right Arm] 93 75 Blood Pressure Source [Right Arm] Blood Pressure Position [Right Arm] 02 Sat by Pulse Oximetry 93 L 94 L Oxygen Delivery Method - Lab Data Lab Results 04/01/19 10:52: WBC 7.1, RBC 4.44 L, Hgb 13.8 L, Hct 42.9, MCV 96.7 H, MCH 31.1, MCHC 32.2, RDW 13.9, Plt Count 367, MPV 7.6, Neut % (Auto) 75.0, Lymph % (Auto) 15.9, Craig % (Auto) 8.1, Eos % (Auto) 0.6, Baso % (Auto) 0.5, Neut # (Auto) 5.4, Lymph # (Auto) 1.1, Craig # (Auto) 0.6, Eos # (Auto) 0.0, Baso # (Auto) 0.0 04/01/19 10:52: Sodium 140, Potassium 2.7 L*, Chloride 101, Carbon Dioxide 30, Anion Gap 11.7, BUN 12, Creatinine 1.58 H, Estimated Creat Clear 41, Estimated GFR 43 L, Est GFR ( Amer) 52 L, Glucose 122 H, Calcium 8.4 L, Total Bilirubin 0.8, AST 37, ALT 14, Alkaline Phosphatase 123 H, C-Reactive Protein 4.6 H, Total Protein 7.5 D, Albumin 3.3 L, Globulin 4.2 H, Albumin/Globulin Ratio 0.8 L 04/01/19 10:52: Lactate 2.4 H 04/01/19 10:52: ESR 65 H 04/01/19 10:52: Total Creatine Kinase 136, CK-MB (CK-2) 0.9, CK-MB (CK-2) Rel Index 0.7, Troponin I < 0.02 04/01/19 10:52: TSH 5.61 H, Free T4 Index 3.5 L, Thyroxine (T4) 10.6, T3 Uptake 33 04/01/19 12:20: Urine Color Yellow, Urine Appearance Clear, Urine pH 6.0, Ur Specific [place] >= 1.030, Urine Protein Trace, Urine Glucose (UA) Negative, Urine Ketones Negative, Urine Blood Negative, Urine Nitrate Negative, Urine Bilirubin Negative, Urine Urobilinogen 0.2, Ur Leukocyte Esterase Negative, Urine WBC 3-5, Urine Bacteria 1+, Hyaline Casts 3-5, Urine Mucus 1+ Result diagrams: 04/01/19 10:52 04/01/19 10:52 Orders (Tests/Meds): ED MEDICATIONS Discontinued Medications Generic Name Dose Route Start Last Admin Trade Name Oliverio PRN Reason Stop Dose Admin Potassium Chloride 60 meq 04/01/19 11:30 04/01/19 12:06 Klor-Con 20meq Tablet PO 04/01/19 11:31 60 meq ONCE ONE Administration ORDERS Category Date Time Status CT chest wo con Stat Cat Scan 04/01/19 13:31 Taken Ammonia Stat Lab 04/01/19 14:30 Received Lactic Acid Follow Up (RFLX 1) Stat Lab 04/01/19 15:00 Received PT/PTT Stat Lab 04/01/19 10:52 Received Blood Culture Stat Micro 04/01/19 10:52 Received - CT Data CT Scan: Head, C-Spine, Abdomen, Pelvis, T-Spine, L-Spine Time Received: 13:[address] Reviewed: Yes: I have viewed the radiologist's interpretation Findings Narrative: T spine: FINDINGS: A scanning begins at C5 level Again see the mild spinal stenosis at C5/6-C6/7 C5/6 spinal stenosis. Posterior hypertrophic spur most evident to the left narrowing the spinal canal and left recess, and foramen C6/7. Spinal stenosis. Diffuse disc/osteophyte features yield mild central canal stenosis and mild bilateral foraminal encroachment. C7/T1: Central spurring/vertical ridging at C7 down to the C7/T1 level but this feature slightly indents thecal sac at C7 and superior aspect C7/T1 T1/T2. Disc intact T2/T3... Uncovertebral joint hypertrophy bilateral, with spurring slight more evident left the paracentral T3/4. Mild degenerative disc space narrowing. The generous focal Schmorl's nodes superior aspect of T4 most likely accounts for the area lucency here.. Doubt lesion. T4/5 subtle disc space narrowing with only scant uncovertebral joint hypertrophy.. T5/6 borderline/subtle disc space narrowing a with minor uncovertebral joint hypertrophy, most evident to the left. T6/7. Mild posterior spurring most evident to the left paracentral slightly indenting thecal sac to the left T7/T8. Mild facet arthropathy, hypertrophy bilaterally T8-9,T 9-10. Disc intact. Scant facet hypertrophy arthropathy. The slight disc narrowing anteriorly T11/12 with early marginal osteophyte. But there also [id number] anterior marginal osteophytes throughout the T-spine, most evident here from T4-T7 just the left. Also generous anterior marginal osteophytes throughout C-spine most evident C4/5 IMPRESSION: No acute findings of the thoracic spine.. Normal alignment. No compression fractures or suspicious lesions. (Generous Schmorl's node most likely accounts for lucency at superior endplate of T4 vertebra) Mild degenerative changes T-spine as detailed in text Again note the degenerative disc changes, and cervical spondylosis at lower [id number] there is mild spinal stenosis developing at C5/6-and C6/7 and less evident C7/T1 the Dictated by: Nic Novak MD 04/01/2019 12:36 Electronically signed by Nic Novak MD in [place] 04/01/2019 12:36 L spine: FINDINGS: The lumbar vertebral bodies are intact with no acute findings no compression fractures. No osseous lesions involving the lumbar spine nor sacrum. The disc spaces are well maintained throughout with only some borderline narrowing at L3/4 L5/S1 disc intact. A prominent degenerative facet hypertrophy most evident to the left L4/5. Diffuse mild disc bulge a slightly indents the neural foramen flattens anterior thecal sac. Disc height maintained. Moderate bilateral facet hypertrophy, arthropathy. L3/4:. Mild/moderate disc bulge. Trace facet arthropathy L2/3. Mild/moderate disc bulge most evident at foramen T12/L1 a disc intact with only scant disc bulge to the left. Mild atherosclerotic calcification aorta and origin of renal arteries. No retroperitoneal findings. Transverse processes intact. Borderline-scant disc space narrowing. [id number]-[id number] diffuse disc bulge most evident towards the right foramen. Mild to moderate foraminal encroachment right greater than left IMPRESSION: 1.Lumbar spine. No acute findings. No compression fractures nor osseous lesions 2. Developing degenerative changes L-spine. -Facet arthropathy most pronounced at L5/S1 and less evident above this level.. -Mild bulging bulges, most notable L3/4 and L2/3. Dictated by: Nic Novak MD 04/01/2019 12:18 Electronically signed by Nic Novak MD in [place] 04/01/2019 12:18 Head: FINDINGS: No acute intracranial findings.. No territorial infarct. No intracranial hemorrhage. The periventricular and deep white matter low density reflecting microvascular chronic deep white-matter ischemic/gliotic changes as commonly encountered in the aging brain but this few cerebral atrophy age appropriate Mild dilatation lateral ventricles and 3rd ventricle reflects cerebral atrophy No significant additional hydrocephalus otherwise. .. No mass or midline shift nor mass effect. No subdural or extra-axial fluid collection is evident. Posterior fossa unremarkable. Ectatic of mildly calcified carotid siphons of reflects aging changes Skull intact-.. Mastoid air cells are well developed and clear. But no mastoid effusion Middle ear clear. IAC's symmetric. Minimal cerumen at the external auditory canal bilaterally Nosinus air-fluid level. Visualized portions of the paranasal sinuses and orbits unremarkable. IMPRESSION: No acute intracranial findings Diffuse cerebral atrophy age appropriate. Chronic small vessel deep white-matter ischemic gliotic changes cerebral hemispheres bilaterally Dictated by: Nic Novak MD 04/01/2019 11:39 Electronically signed by Nic Novak MD in [place] 04/01/2019 11:39 C spine: FINDINGS: No fracture nor subluxation is evident. Normal prevertebral soft tissues. Cervical spine intact with no fracture nor subluxation. But the images show no significant appearing change when compared to plain films from 2015 C-spine but again multilevel cervical spondylosis and degenerative. Degenerative disc space narrowing at C3/4, C4/5-C5/6 C6/7 C7/T1, posterior osteophytic hypertrophic ridging at each of these levels. There is also multilevel facet arthropathy, hypertrophy most evident upper C-spine to the left C2/3 C2/3 disc is intact C3/4: Degenerative disc space narrowing. Mild uncovertebral joint hypertrophy bilaterally yields mild foraminal encroachment bilaterally. anterior marginal osteophytes also noted C4/5. spinal stenosis. Congenitally modest spinal canal further narrowed by the posterior marginal osteophytes/spurring. Posterior spurring most evident to the right paracentral effacing thecal the sac to the right. (Axial image 49.) encroachment upon the neural foramen bilateral. . Mild diffuse disc bulge accompanies the posterior ridging. These disc/osteophyte features yield the moderate central canal stenosis Exuberant anterior marginal osteophytes at this level and at the posterior aspect of the hypopharynx the and could you dysphagia symptoms at present. C5/6 disc/marginal osteophytes yield moderate central canal stenosis. degenerative disc space narrowing. The cervical spondylosis with prominent septal osteophytic spurring most focal left paracentral, indenting the thecal sac to the left and encroach upon the left recess and foramen . Mild disc bulge. Overall moderate central canal spinal stenosis most pronounced to the left C6/7: Cervical spondylosis with degenerative disc space narrowing and mild posterior hypertrophic ridging most evident to the left mildly indenting thecal sac to the left but minimal foraminal encroachment but there is also some central spurring arising from the posterior margin of C6. Which effaces the thecal sac midline C7/T1. Degenerative disc space narrowing. The disc/osteophytes yield mild indentation upon thecal sac midline and to the left of midline T1-T2 disc intact. Mild bilateral facet arthropathy but most evident at C2/3 to the left C1-C2 relationships appear normal Calcification ligamentum nuchae most notable overlying the C4-C5 spinous process The apices of lungs appear clear. No acute findings . The no significant mass nor adenopathy on survey images of the soft tissues of the neck. Base of skull unremarkable. Mild degenerative changes right and left TMJ IMPRESSION: No acute findings at the cervical spine. No fracture nor osseous lesions nor subluxation Multilevel degenerative disc changes/cervical spondylosis observed, superimposed upon modest volume osseous cervical canal. Of additional posterior spurring to the right at C4/5 min to the left at C5/6 Spinal stenosis most pronouncedC5/6 and C4/5, . Borderline to mild spinal stenosis at C6/7, C3/4. MRI C-spine could provide further detail evaluation if symptoms would warrant such Dictated by: Nic Novak MD 04/01/2019 12:05 Electronically signed by Nic Novak MD in [place] 04/01/2019 12:05 Abdomen/Pelvis: FINDINGS: Lower thorax: 9.5 mm nonspecific lung nodule right lung base RLL: (Sagittal slice 29, coronal 59, axial image 10). 6.4 mm there is also a smaller nonspecific lung nodule at the periphery of the RLL of (axial slice 3) located more superiorly. These warrant CT chest suggested to evaluate for any other pulmonary nodules or lung findings. Bibasilar atelectasis with scant pleural effusion also noted. Extensive coronary artery calcification. Pacemaker leads. ABDOMEN/PELVIS: Lack of oral and IV contrast somewhat decreases sensitivity PROMINENT ASCITES: Throughout abdomen and pelvis. Generous low-density fluid seen surrounding the liver and spleen. Generous fluid extends along right and left gutters into pelvis with prominent fluid seen throughout the pelvis and pelvic basin. Fluid outlining bowel loops throughout abdomen and pelvis. Of for example this fluid collection above the bladder measured nearly 18 AP X 6.5 cm height X 13 cm transverse I see no focal masses peritoneal or intraperitoneal masses. . LIVER: Modest the slightly small size liver with suggestion of subtle scalloping along margin of the liver-appearance suspect for cirrhosis.. Clinical correlation required; requires correlation LFTs. (What I can see of current lab show surprising normal transaminases, but note elevated alk phosphatase. However with history of confusion may be worth checking ammonia level with this appearance.) The the GALLBLADDER: Contracted with upper normal wall thickness. There is a. 5.5 mm stone towards the neck of the gallbladder. Common duct is not dilated. Pancreas: unremarkable on this noncontrast study.. Its margins remain sharp with some mild fatty changes throughout pancreas. Slight ill-defined appearance towards the head of the pancreas of believe is related adjacent ascites with no good evidence for pancreatitis by CT,. However with overall findings may want of check amylase and lipase baseline and his workup as well. SPLEEN: Mildly enlarged measuring 15 cm in length on coronal view.. However on the axial views it appears normal size. Adrenals: unremarkable tract Left kidney. Of 3.5 mm calculus upper pole left kidney. Nonobstructive. Right kidney. No calculi. Mild stranding about both kidneys nonspecific. No urinary tract obstruction. No ureteral calculi. PELVIS: Prostate enlarged measuring up to 5.3 cm the central calcifications but moderate size similar vessels but Urinary bladder. No calculi. Of borderline wall thickening. Bladder: Nondistended. No obvious stones or masses. Appendix: Unremarkable. No distention or periappendiceal phlegmonous change. GI TRACT t . Stomach. Fluid ascites fluid of most evident along the greater curvature of the stomach but the stomach itself unremarkable but small bowel. Upper normal wall thickness of loose particular in the left abdomen. Non-specific. Could be related to the ascites or edematous state if present. Could not exclude a mild enteritis. Large bowel. Minimal stool is seen throughout the colon. Stool most evident at the right colon along with some minimal contrast right colon. Terminal ileum appears satisfactory. No suspicious findings for appendicitis. Appendix obscured by the ascites fluid but what I have suspect is appendix is within normal limits. Lymph nodes: No significant enlarged lymph nodes apparent. There are some scattered mesenteric and retroperitoneal and possibly subtle retrocrural nodes which would benefit from follow-up on subsequent studies but Vasculature: Diffuse atherosclerotic calcification aorta. Minor dilatation up to 2.3 cm but no significant aneurysmal dilatation.. No osseous lesions identified mild degenerative changes spine dictated on separate report the the IMPRESSION: 1.Prominent ascites The generous ascites fluid surrounds the liver and spleen-then extends along the gutters with prominent throughout the pelvis. Generous ascites fluid surrounds bowel loops 2.CT appearance suggestive cirrhosis. Smaller liver with slight irregular undulating margins.. 3.mild splenomegaly--15 cm in length 3.Cholelithiasis. Small 5 mm gallstone within a contracted gallbladder. No biliary ductal dilatation 4. Nonspecific nodules right lung base. Warrant follow-up CT chest further evaluate for other nodules or additional chest findings Dictated by: Nic Novak MD 04/01/2019 13:18 Electronically signed by Nic Novak MD in [place] 04/01/2019 13:18 - ECG Data Tracing #1 EKG interpreted by Diego Lopez MD: Rhythm: Dual-chamber paced rhythm Rate: 65 No evidence of acute ischemia or injury - Physician Consults Physician Consulted: Sharee Bates Time: 14:50 Reason -: Admission Comment/Response: Agrees to admit the patient to the hospital. We discussed the patient's clinical information, including history, exam, laboratory and radiology results and ED course. Per hospital procedure, I will write temporary bridge inpatient orders on the patient. Specific orders requested by the admitting physician: IV fluids with potassium. General Adult HPI - General Chief complaint: Weakness Stated complaint: weakness Time Seen by Provider: 04/01/19 11:07 Mode of Arrival: EMS Limitations: No Limitations Description of Symptoms (Recalled from ER Triage Doc. by RN): sent from home to be evaluated for progressive weakness ble, progressive incontinence - History of Present Illness HPI narrative: Patient is brought in by ambulance. He has dementia. History is obtained from his and his son predominantly. They report he has had a progressive decline over the past year. Gradually getting weaker in the legs. He can barely walk with a walker and assistance. The last time he was upright was last night when his got him to the bathroom with a walker with great difficulty and she says that he fell. This morning he says his legs while at work. He is also had incontinence of bowel and bladder for the past couple of months. Poor oral intake for the past month. Despite this his abdomen seems to be getting distended during that period. No fever. No URI symptoms. No chest pain or other pains reported. He has Parkinson's disease, coronary artery disease, pacemaker and prior coronary to bypass surgery. He has diabetes, but they state he does not have hypertension or hyperlipidemia. He has never been a smoker and he is a nondrinker. His primary care doctor is Dr. Christine, who he has not seen in about a year. He saw his coke worker at [facility] over the summer but his coke worker has since left the practice. He has a history of prostate cancer diagnosed more than 10 years ago. No treatment. Son states he was told that his father's heart was not strong enough for any treatment and it was a very slow-growing cancer. - Related Data Home Medications Medication Instructions Recorded Confirmed Bisoprolol Fumarate [Bisoprolol 2.5 mg PO DAILY 02/16/18 04/01/19 5mg Tablet] Metformin HCl 500 mg PO BID 02/16/18 04/01/19 Simvastatin 40 mg PO HS 02/16/18 04/01/19 levETIRAcetam [Levetiracetam] 750 mg PO BID 02/16/18 04/01/19 Aspirin [Aspirin 81mg EC Tab] 81 mg PO DAILY 02/17/18 04/01/19 Allergies Allergy/AdvReac Type Severity Reaction Status Date / Time No Known Allergies Allergy Verified 02/16/18 15:16 [facility] History - Hepatitis A Screen Drug use history?: No High risk sexual behaviors?: No History of sexually transmitted infection?: No Currently employed?: No Childcare worker?: No Do you have indoor plumbing?: Yes Do you have electricity?: Yes Attestation statement:: This patient has been screened for Hepatitis A risk factors. I have reviewed the patient's past medical history: Yes Medical History: Reports:: Cancer (prostate), Diabetes Mellitus Type 1, Myocardial Infarction Denies:: Diabetes Mellitus Type 2, MRSA Other Surgeries: Yes: CABG Amputation: No Fractures: No - Social History Alcohol Intake: never Occupational Status: retired Housing: house Household Members: significant other Family Hx:: Cancer, Coronary Artery Disease, Diabetes, Heart Attack, Hyperlipidemia, Hypertension, Stroke ROS Obtained: Yes unobtainable due to mental condition Physical Exam - General General appearance: alert, in no apparent distress - Head Head exam: atraumatic, normocephalic - Eye Eye exam: Present: normal appearance, EOMI - ENT ENT exam: Present: mucous membranes moist - Neck Neck exam: Present: normal inspection, trachea midline - Chest Chest inspection: Present: normal inspection, symmetric chest wall rise - Respiratory Respiratory exam: Present: normal lung sounds bilaterally. Absent: respiratory distress - Cardiovascular Cardiovascular exam: Present: regular rate, normal rhythm, normal heart sounds - Abdominal Exam Abdominal exam: Present: soft, distention, normal bowel sounds. Absent: tenderness, guarding, rebound, rigidity - Extremities Exam Extremities exam: Present: normal capillary refill, other (1+ pitting edema of ankles) - Neurological Exam Neurological exam: Present: alert, CN II-XII intact, other (Tremor) - Expanded Neurological Exam Comment: Able to hold each extremity off the bed against gravity with no drift. States he cannot feel touch on his legs, but raises each leg independently when it is touched and he was told to raise the leg that I am touching. - Psychiatric Psychiatric exam: Present: flat affect - Skin Skin exam: Present: warm, dry
[2019-04-01 11:20] LABS: Basophils % 0.5 % (0.1-2.0); Eosinophils % 0.6 % (0.1-12.0); Hematocrit 42.9 % (42.0-52.0); Hemoglobin 13.8 g/dL (14.1-18.0); Lymphocytes # 1.1 K/mm3 (0.7-4.5); Lymphocytes % 15.9 % (10-50); Mean Corpuscular HGB Conc 32.2 g/dL (31.8-35.4); Mean Corpuscular Volume 96.7 fl (80-94); Mean Platelet Volume 7.6 fl (7.4-10.4); Monocytes # 0.6 K/mm3 (0.1-1.0); Monocytes % 8.1 % (1.7-9.3); Neutrophils # 5.4 K/mm3 (1.8-7.8); Platelet Count 367 K/mm3 (142-424); Red Blood Count 4.44 M/mm3 (4.60-6.20); Red Cell Distribution Width 13.9 % (11.5-17.5); White Blood Count 7.1 K/mm3 (4.8-10.8)
[2019-04-01 11:21] LABS: Albumin Level 3.3 gm/dL (3.4-5.0); Albumin/Globulin Ratio 0.8 (1.1-1.8); Anion Gap 11.7 mEq/L (5-15); Bilirubin,Total 0.8 mg/dL (0.2-1.0); C-Reactive Protein 4.6 mg/dL (0.0-0.9); Calcium 8.4 mg/dL (8.5-10.1); Globulin 4.2 gm/dl (1.3-3.2); Total Protein,Serum 7.5 gm/dL (6.4-8.2)
[2019-04-01 11:46] LABS: Creatine Kinase 136 U/L (39-308)
[2019-04-01 12:27] LABS: Microscopic, Urine URINE MICROSCOPIC (MICROSCOPIC)
[2019-04-01 12:36] LABS: Appearance,Urine CLEAR (Clear); Bilirubin,Urine Negative (Negative); Blood, Urine Negative (Negative); Color,Urine YELLOW (Yellow); Glucose,Urine (UA) Negative (Negative); Ketones,Urine Negative (Negative); Leukocyte Esterase,Urine Negative (Negative); Protein,Urine TRACE (Negative); Specific Gravity, Urine >= 1.030 (1.005-1.030); Urobilinogen,Urine 0.2 EU/dl (0.2)
[2019-04-01 12:45] LABS: Bacteria,Urine 1+ /lpf; Mucus,Urine 1+ /lpf
[2019-04-01 13:15] LABS: Free Thyroxine Index 3.5 ug/dL (5.93-13.13); Thyroid Stimulating Hormone 5.61 uIU/ml (0.358-3.740)
[2019-04-01 15:50] LABS: Prothrombin Time 11.7 seconds (9.4-11.8)
[2019-04-01 15:51] LABS: Activated Partial Thrombo Time 29.7 seconds (23.6-34.0); INR 1.13 (0.9-1.1)
--- NOTE | 2019-04-01 21:03 | Electrocardiograph Report ---
APPROVED REPORT Exam: Resting ECG HR:65 bpm ECG Measurements Heart Rate 65 AXES OH 162 P QRSd 124 QRS 27 QT 460 T15 QTc 478 <Conclusion> AV sequential or dual chamber electronic pacemaker Electronically signed by : Jitendra Bates, 04/01/2019 21:03:23
[2019-04-02 06:15] LABS: Basophils % 0.5 % (0.1-2.0); Eosinophils % 0.7 % (0.1-12.0); Hematocrit 33.8 % (42.0-52.0); Lymphocytes % 20.9 % (10-50); Mean Corpuscular HGB Conc 33.6 g/dL (31.8-35.4); Mean Corpuscular Volume 93.6 fl (80-94); Mean Platelet Volume 7.9 fl (7.4-10.4); Monocytes # 0.4 K/mm3 (0.1-1.0); Monocytes % 8.4 % (1.7-9.3); Neutrophils # 3.4 K/mm3 (1.8-7.8); Neutrophils % 69.4 % (37.0-80.0); Platelet Count 226 K/mm3 (142-424); Red Blood Count 3.61 M/mm3 (4.60-6.20); Red Cell Distribution Width 13.9 % (11.5-17.5)
[2019-04-02 06:27] LABS: Albumin Level 2.5 gm/dL (3.4-5.0); Albumin/Globulin Ratio 0.8 (1.1-1.8); Anion Gap 12.2 mEq/L (5-15); Bilirubin,Total 0.6 mg/dL (0.2-1.0); Globulin 3.2 gm/dl (1.3-3.2); Total Protein,Serum 5.7 gm/dL (6.4-8.2)
[2019-04-02 06:29] LABS: Hemoglobin 11.4 g/dL (14.1-18.0)
[2019-04-02 06:38] LABS: Calcium 7.5 mg/dL (8.5-10.1)
--- NOTE | 2019-04-02 07:48 | Pharmacy Consult Notes ---
[facility] Pharmacy VTE Monitoring - Patient Demographics Admission date: 04/01/19 Report Date: 04/02/19 Time: 07:48 Allergies/Adverse Reactions: Patient Allergies No Known Allergies Allergy (Verified 02/16/18 15:16) Height: 1.85 m Weight: 86.75 kg Patient Problems: Current Active Problems Altered mental status (Acute) Weakness (Acute) Hypokalemia (Acute) Ascites (Acute) Pulmonary nodule (Acute) Liver mass (Acute) Fecal incontinence (Acute) Urinary incontinence (Acute) - VTE Risk Labs: VTE Related Lab Results Hgb 11.4 g/dL (14.1-18.0) L D 04/02/19 05:35 Hct 33.8 % (42.0-52.0) L 04/02/19 05:35 Plt Count 226 K/mm3 (142-424) D 04/02/19 05:35 PT 11.7 seconds (9.4-11.8) 04/01/19 10:52 INR 1.13 (0.9-1.1) H 04/01/19 10:52 APTT 29.7 seconds (23.6-34.0) 04/01/19 10:52 BUN 11 mg/dL (7-18) 04/02/19 05:35 Creatinine 1.30 mg/dL (0.70-1.30) 04/02/19 05:35 Estimated Creat Clear 58 mL/min (50-200) 04/02/19 05:35 Was VTE Risk Assessment Performed: Yes VTE Score: 5 VTE Risk Level: Low Risk - Prophylaxis VTE Prophylaxis Ordered?: Yes Types of VTE Prophylaxis: TEDS Knee High Location of Applied Device: Bilateral Lower Extremeties - VTE Diagnosis Confirmed Treatment or plan recommended: Continue Current Treatment
--- NOTE | 2019-04-02 08:25 | History & Physical Report ---
*Admission Date: 04/01/19 *Chief complaint: Weakness/confusion *History of present illness: 78-year-old white male, patient of Dr. Krishna Christine, who does not go see him on a regular basis-and in fact has not seen him for over a year, who has a history of CHF, ejection fraction 25% on echocardiogram 1 year ago, pacemaker dependent with replacement in April 2018 at [facility], and diabetes who was brought to the emergency department with a chief complaint of weakness, confusion and lethargy. He was found to have new onset ascites, with evidence of cirrhosis on CT scan of liver, but no significant electrolyte abnormalities except for low potassium at 2.5. Was very confused and weak and is admitted for work-up of the above problems. Lives at home with his who is his solitary hydraulic tester. reports that "he does nothing for himself." He is able to transfer with maximum assistance from her, but does not walk independently. Last year we did start donepezil for dementia, and apparently he still takes this but no other dementia services have been instituted, such as home health, PT or other medications. And as noted above he is not returned to his primary physician for reevaluation. However, he continues to receive refills on his medication. denies recent fevers, vomiting, diarrhea or rash. [facility] History I have reviewed the patient's past medical history: Yes Medical History: Reports:: Cancer (Prostate cancer treated many years ago), Dementia, Diabetes Mellitus Type 2, Myocardial Infarction Denies:: MRSA *Have you ever received a pneumonia vaccine?: No *Have you received a flu vaccine this season?: No Other Surgeries: Yes: CABG, Pacemaker Amputation: No Fractures: No - *Social History Educational Level: Completed High School Smoking Status: Never smoker Alcohol Intake: never *Occupational Status:: retired Housing: house Household Members: spouse *Travel in the last 8 weeks: None Family Hx:: Cancer, Coronary Artery Disease, Diabetes, Heart Attack, Hyperlipidemia, Hypertension, Stroke Review of Systems - Review of Systems Review of systems:: unable to obtain Patient reports no complaints, review of systems essentially per because of his confusion Meds Home Medications Medication Instructions Recorded Confirmed Type Bisoprolol Fumarate [Bisoprolol 2.5 mg PO DAILY 02/16/18 04/01/19 History 5mg Tablet] Metformin HCl 500 mg PO BID 10/04/18 11/17/19 History Simvastatin 40 mg PO HS 02/16/18 04/01/19 History levETIRAcetam [Levetiracetam] 750 mg PO BID 02/16/18 04/01/19 History Aspirin [Aspirin 81mg EC Tab] 81 mg PO DAILY 02/17/18 04/01/19 History Donepezil HCl [Aricept 5mg 5 mg PO HS 04/02/19 04/02/19 History Tablet] Allergies Allergy/AdvReac Type Severity Reaction Status Date / Time No Known Allergies Allergy Verified 02/16/18 15:16 Exam Vital signs and Labs for Last 24 Hours: Temp Pulse Resp BP Pulse Ox 97.7 F 72 18 147/89 H 92 L 04/02/19 07:59 04/02/19 07:59 04/02/19 07:59 04/02/19 07:59 04/02/19 07:59 Laboratory Results - last 24 hr 04/01/19 10:52: WBC 7.1, RBC 4.44 L, Hgb 13.8 L, Hct 42.9, MCV 96.7 H, MCH 31.1, MCHC 32.2, RDW 13.9, Plt Count 367, MPV 7.6, Neut % (Auto) 75.0, Lymph % (Auto) 15.9, Shelby % (Auto) 8.1, Eos % (Auto) 0.6, Baso % (Auto) 0.5, Neut # (Auto) 5.4, Lymph # (Auto) 1.1, Shelby # (Auto) 0.6, Eos # (Auto) 0.0, Baso # (Auto) 0.0 04/01/19 10:52: Sodium 140, Potassium 2.7 L*, Chloride 101, Carbon Dioxide 30, Anion Gap 11.7, BUN 12, Creatinine 1.58 H, Estimated Creat Clear 41, Estimated GFR 43 L, Est GFR ( Amer) 52 L, Glucose 122 H, Calcium 8.4 L, Total Bilirubin 0.8, AST 37, ALT 14, Alkaline Phosphatase 123 H, C-Reactive Protein 4.6 H, Total Protein 7.5 D, Albumin 3.3 L, Globulin 4.2 H, Albumin/Globulin Ratio 0.8 L 04/01/19 10:52: Lactate 2.4 H 04/01/19 10:52: ESR 65 H 04/01/19 10:52: Total Creatine Kinase 136, CK-MB (CK-2) 0.9, CK-MB (CK-2) Rel Index 0.7, Troponin I < 0.02 04/01/19 10:52: TSH 5.61 H, Free T4 Index 3.5 L, Thyroxine (T4) 10.6, T3 Uptake 33 04/01/19 10:52: PT 11.7, INR 1.13 H, APTT 29.7 04/01/19 12:20: Urine Color Yellow, Urine Appearance Clear, Urine pH 6.0, Ur Specific Justice >= 1.030, Urine Protein Trace, Urine Glucose (UA) Negative, Urine Ketones Negative, Urine Blood Negative, Urine Nitrate Negative, Urine Bilirubin Negative, Urine Urobilinogen 0.2, Ur Leukocyte Esterase Negative, Urine WBC 3-5, Urine Bacteria 1+, Hyaline Casts 3-5, Urine Mucus 1+ 04/01/19 14:30: Ammonia 8 L 04/01/19 15:00: Lactate 1.7 04/01/19 17:47: POC Glucose 107 04/02/19 05:35: WBC 5.0 D, RBC 3.61 L, Hgb 11.4 L D, Hct 33.8 L, MCV 93.6, MCH 31.5 H, MCHC 33.6, RDW 13.9, Plt Count 226 D, MPV 7.9, Neut % (Auto) 69.4, Lymph % (Auto) 20.9, Shelby % (Auto) 8.4, Eos % (Auto) 0.7, Baso % (Auto) 0.5, Neut # (Auto) 3.4, Lymph # (Auto) 1.0, Shelby # (Auto) 0.4, Eos # (Auto) 0.0, Baso # (Auto) 0.0 04/02/19 05:35: Sodium 141, Potassium 3.2 L, Chloride 104, Carbon Dioxide 28, Anion Gap 12.2, BUN 11, Creatinine 1.30, Estimated Creat Clear 58, Estimated GFR 54 L, Est GFR ( Amer) 65 D, Glucose 96 D, Calcium 7.5 L D, Magnesium 1.0 L, Total Bilirubin 0.6, AST 31, ALT 14, Alkaline Phosphatase 92, Total Protein 5.7 L, Albumin 2.5 L D, Globulin 3.2, Albumin/Globulin Ratio 0.8 L 04/02/19 05:35: B-Natriuretic Peptide 353 H 04/02/19 06:42: POC Glucose 100 I & O for Last 24 hours: Intake & Output 03/30/19 03/31/19 04/01/19 04/02/19 11:59 11:59 11:59 11:59 Intake Total 660 / 660 Output Total 400 / 400 Balance 260 / 260 Weight 165 lb 191 lb 4 oz Narrative: Patient is awake, does respond to commands minimally, no evidence of rash, appears pale but no stigmata of liver disease on abdomen or chest. Pacemaker in place on the chest. Anterior lung julian are diminished air movement but clear. Heart rate irregular, no murmurs. Abdomen protuberant, ascites noted. Extremities with trace ankle edema in the shins. Significant onychomycosis of all toenails. Warm and well-perfused distal extremities. Globally weak. Cranial nerves intact. No JVD. Oropharynx clear. Assessment and Plan (1) Systolic congestive heart failure Current visit: Yes Status: Acute Category: Medical Code(s): I50.20 - Unspecified systolic (congestive) heart failure Patient seems euvolemic. Check echocardiogram. (2) Altered mental status Current visit: Yes Status: Acute Qualifiers: Altered mental status type: unspecified Qualified Code(s): R41.82 - Altered mental status, unspecified Category: Medical Code(s): R41.82 - Altered mental status, unspecified Probably chronic. Significant dementia. Worsened by hypokalemia?, Track electrolytes carefully. (3) Ascites Current visit: Yes Status: Acute Qualifiers: Ascites type: other type Qualified Code(s): R18.8 - Other ascites Category: Medical Code(s): R18.8 - Other ascites Seems to be new onset. Paracentesis today. GI consultation. (4) Hypokalemia Current visit: Yes Status: Acute Category: Medical Code(s): E87.6 - Hypokalemia (5) Liver mass Current visit: Yes Status: Acute Category: Medical Code(s): R16.0 - Hepatomegaly, not elsewhere classified Mass versus cirrhosis on CT scan, GI evaluation (6) Pulmonary nodule Current visit: Yes Status: Acute Category: Medical Code(s): R91.1 - Solitary pulmonary nodule (7) Weakness Current visit: Yes Status: Acute Category: Medical Code(s): R53.1 - Weakness Multifactorial. PT/OT evaluation.
[2019-04-02 12:07] LABS: Appearance,Body Fld. Slightly hazy; RBC,Body Fluid < 10 cells/uL (< 10 X 10^3); TNC,Body Fluid 252 cells/uL (< 1000)
[2019-04-02 12:52] LABS: Mononuclear WBCs,Body Fluid 100 %; Polynuclear WBC,Body Fluid 0 %
--- NOTE | 2019-04-02 16:09 | Consult Report ---
*Admission Date: 04/01/19 *Reason for consult:: cirrhosis/ascites *History of present illness: This is a 78-year-old male patient past medical history of dementia, CHF with ejection fraction of 25%, history of CO status post CABG and pacemaker placement, DM 2 and history of prostate cancer about 10 years ago. He is a patient of Dr. Ribeiro but has not been followed on a regular basis. He has not been back to see his physician in over a year. Patient was diagnosed with dementia little over a year ago and was started on medication but never did follow-up with any further testing or treatment. His reports that he has been getting more confused and weaker over the course the past year and has not felt like following up with a physician's office. She also reports that he has been having incontinence of bowel and bladder for the past month. She finally brought him to the ER for evaluation. In the ER CT scan showed new onset ascites with evidence of cirrhosis on CT scan and some electrolyte abnormalities including low potassium and low magnesium. He did have an elevated alk phos on initial labs but repeat shows a resolution of that. He had pneumonia level of 8 and a normal platelet count. On admission he had a meld score of 12. 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 The denies any past medical history of liver dysfunction or elevated liver enzymes. She denies that he has ever had a problem with alcohol. CT scan shows large amount of ascites throughout the abdomen pelvis surrounding the liver and spleen and along with stomach. It also shows a vague low-density region of the liver of approximately 5 cm with another possible lesion at the superior hilum of the liver and some possible satellite nodular areas along the superior margin this could not be well-defined on the CT scan was without contrast and there was some artifact. There was no liver enlargement but there was some questionable splenomegaly. There are also a couple of nonspecific lung nodules and a single lesion on the superior right aspect of T4, possible Schmorl's node but could not exclude a metastatic lesion. The reports that the patient was diagnosed with prost ate cancer about 10 years ago but given that it was so slow-growing they elected to do no treatment. He has had no follow-up per his 's report. He was seen at [facility] for this. The patient was being seen by Cardiology at [facility] who had him on diuretics for his CHF. The reports that he took it once but it because it made him urinate multiple times he never took it again. He has not been on diuretics for about 6 months reports that he refuses to take any diuretics. He did have his last appointment with his junior software engineer in November of this year and is due for pacemaker check next month. Patient is awake but confused. He is A&O x2 and his answers most questions. His abdomen is benign on exam and there is no obvious hepatomegaly. [facility] History Medical History: Reports:: Cancer (Prostate cancer treated many years ago), Oziel estive Heart Failure, Coronary Artery Disease, Dementia, Diabetes Mellitus Type 1, Diabetes Mellitus Type 2, Internal Pacemaker, Myocardial Infarction Denies:: MRSA *Have you ever received a pneumonia vaccine?: No *Have you received a flu vaccine this season?: No Other Surgeries: Yes: CABG, Pacemaker Amputation: No Fractures: No - *Social History Educational Level: Completed High School Smoking Status: Never smoker Alcohol Intake: never *Occupational Status:: retired Housing: house Household Members: spouse *Travel in the last 8 weeks: None Family Hx:: Cancer, Coronary Artery Disease, Diabetes, Heart Attack, Hyperlipidemia, Hypertension, Stroke Review of Systems - Constitutional Reports anorexia, Reports fatigue, Reports lack of energy, Reports malaise, Reports weakness, Denies chills, Denies fever(s) - Eyes Denies blurry vision - ENT Reports poor balance, Reports dizziness, Denies abnormal hearing - *Cardiovascular Denies chest pain, Denies shortness of breath - *Respiratory Denies chest congestion, Denies cough, Denies shortness of breath - *Gastrointestinal Reports loose stools, Reports incontinent of stools, Denies abdominal pain, Denies change in bowel habits, Denies constipation - *Genitourinary Reports urinary incontinence - *Musculoskeletal Reports abnormal walking, Reports back pain - Integumentary/Breasts Denies yellowing of the skin, Denies itching, Denies rash - *Neurologic Reports behavioral changes, Reports confusion, Reports unsteadiness, Reports weakness - Psychiatric Reports behavioral changes, Reports change in appetite Meds Home Medications Medication Instructions Recorded Confirmed Type Bisoprolol Fumarate [Bisoprolol 2.5 mg PO DAILY 02/16/18 04/01/19 History 5mg Tablet] Metformin HCl 500 mg PO BID 02/16/18 04/01/19 History Simvastatin 40 mg PO HS 02/16/18 04/01/19 History levETIRAcetam [Levetiracetam] 750 mg PO BID 02/16/18 04/01/19 History Aspirin [Aspirin 81mg EC Tab] 81 mg PO DAILY 02/17/18 04/01/19 History Donepezil HCl [Aricept 5mg 5 mg PO HS 04/02/19 04/02/19 History Tablet] Allergies Allergy/AdvReac Type Severity Reaction Status Date / Time No Known Allergies Allergy Verified 02/16/18 15:16 Exam Vital signs and Labs for Last 24 Hours: Temp Pulse Resp BP Pulse Ox 98.5 F 45 L 17 119/72 92 L 04/02/19 15:38 04/02/19 15:38 04/02/19 15:38 04/02/19 15:38 04/02/19 15:38 Laboratory Results - last 24 hr 04/01/19 17:47: POC Glucose 107 04/02/19 05:35: WBC 5.0 D, RBC 3.61 L, Hgb 11.4 L D, Hct 33.8 L, MCV 93.6, MCH 31.5 H, MCHC 33.6, RDW 13.9, Plt Count 226 D, MPV 7.9, Neut % (Auto) 69.4, Lymph % (Auto) 20.9, [place] % (Auto) 8.4, Eos % (Auto) 0.7, Baso % (Auto) 0.5, Neut # (Auto) 3.4, Lymph # (Auto) 1.0, [place] # (Auto) 0.4, Eos # (Auto) 0.0, Baso # (Auto) 0.0 04/02/19 05:35: Sodium 141, Potassium 3.2 L, Chloride 104, Carbon Dioxide 28, Anion Gap 12.2, BUN 11, Creatinine 1.30, Estimated Creat Clear 58, Estimated GFR 54 L, Est GFR ( Amer) 65 D, Glucose 96 D, Calcium 7.5 L D, Magnesium 1.0 L, Total Bilirubin 0.6, AST 31, ALT 14, Alkaline Phosphatase 92, Total Protein 5.7 L, Albumin 2.5 L D, Globulin 3.2, Albumin/Globulin Ratio 0.8 L 04/02/19 05:35: B-Natriuretic Peptide 353 H 04/02/19 06:42: POC Glucose 100 04/02/19 10:30: Fluid Source Peritoneal fluid, Fluid Volume 2225, Fluid Appearance Slightly hazy, Fluid RBC (Auto) < 10, Fld Tot Nucleated Cell 252, Fld Polynuclear WBCs % 0, Fld Mononuclear WBCs % 100 04/02/19 11:07: POC Glucose 144 H I & O for Last 24 hours: Intake & Output 03/31/19 04/01/19 04/02/19 04/03/19 11:59 11:59 11:59 11:59 Intake Total 660 240 Output Total 400 Balance 260 240 Weight 74.843 kg 86.75 kg Microbiology Reports for the Last 24 Hours: Microbiology 04/02/19 10:30 Ascites Fluid - Abdominal Gram Stain - Final Radiology Reports for the Last 24 Hours: Procedure: CT ABDOMEN PELVIS WO CON Patient Age:78Y CLINICAL INDICATION: weakness, incontinence weakness and incontinence but unable to follow commands clearly the COMPARISON: CXR CHEST(2 VIEWS-NOT PORTABLE) from 09/27/2014 SHOU3R [id number] VIEWS from 09/27/2014 TECHNIQUE: No oral or IV contrast utilized the Axial images obtained with sagittal and coronal reformats. All CT scans at the facility use one or more dose reduction, viz: automated exposure control, ma/kV adjustment per patient size (including targeted exams where dose is matched to indication, i.e. head), or iterative reconstruction technique. FINDINGS: Lower thorax: 9.5 mm nonspecific lung nodule right lung base RLL: (Sagittal slice 29, coronal 59, axial image 10). 6.4 mm there is also a smaller nonspecific lung nodule at the periphery of the RLL of (axial slice 3) located more superiorly. These warrant CT chest suggested to evaluate for any other pulmonary nodules or lung findings. Bibasilar atelectasis with scant pleural effusion also noted. Extensive coronary artery calcification. Pacemaker leads. ABDOMEN/PELVIS: Lack of oral and IV contrast somewhat decreases sensitivity PROMINENT ASCITES: Throughout abdomen and pelvis. Generous low-density fluid seen surrounding the liver and spleen. Generous fluid extends along right and left gutters into pelvis with prominent fluid seen throughout the pelvis and pelvic basin. Fluid outlining bowel loops throughout abdomen and pelvis. Of for example this fluid collection above the bladder measured nearly 18 AP X 6.5 cm height X 13 cm transverse I see no focal masses peritoneal or intraperitoneal masses. . LIVER: Modest the slightly small size liver with suggestion of subtle scalloping along margin of the liver-appearance suspect for cirrhosis.. Clinical correlation required; requires correlation LFTs. (What I can see of current lab show surprising normal transaminases, but note elevated alk phosphatase. However with history of confusion may be worth checking ammonia level with this appearance.) The the GALLBLADDER: Contracted with upper normal wall thickness. There is a. 5.5 mm stone towards the neck of the gallbladder. Common duct is not dilated. Pancreas: unremarkable on this noncontrast study.. Its margins remain sharp with some mild fatty changes throughout pancreas. Slight ill-defined appearance towards the head of the pancreas of believe is related adjacent ascites with no good evidence for pancreatitis by CT,. However with overall findings may want of check amylase and lipase baseline and his workup as well. SPLEEN: Mildly enlarged measuring 15 cm in length on coronal view.. However on the axial views it appears normal size. Adrenals: unremarkable tract Left kidney. Of 3.5 mm calculus upper pole left kidney. Nonobstructive. Right kidney. No calculi. Mild stranding about both kidneys nonspecific. No urinary tract obstruction. No ureteral calculi. PELVIS: Prostate enlarged measuring up to 5.3 cm the central calcifications but moderate size similar vessels but Urinary bladder. No calculi. Of borderline wall thickening. Bladder: Nondistended. No obvious stones or masses. Appendix: Unremarkable. No distention or periappendiceal phlegmonous change. GI TRACT t . Stomach. Fluid ascites fluid of most evident along the greater curvature of the stomach but the stomach itself unremarkable but small bowel. Upper normal wall thickness of loose particular in the left abdomen. Non-specific. Could be related to the ascites or edematous state if present. Could not exclude a mild enteritis. Large bowel. Minimal stool is seen throughout the colon. Stool most evident at the right colon along with some minimal contrast right colon. Terminal ileum appears satisfactory. No suspicious findings for appendicitis. Appendix obscured by the ascites fluid but what I have suspect is appendix is within normal limits. Lymph nodes: No significant enlarged lymph nodes apparent. There are some scattered mesenteric and retroperitoneal and possibly subtle retrocrural nodes which would benefit from follow-up on subsequent studies but Vasculature: Diffuse atherosclerotic calcification aorta. Minor dilatation up to 2.3 cm but no significant aneurysmal dilatation.. No osseous lesions identified mild degenerative changes spine dictated on separate report the the IMPRESSION: 1.Prominent ascites The generous ascites fluid surrounds the liver and spleen-then extends along the gutters with prominent throughout the pelvis. Generous ascites fluid surrounds bowel loops 2.CT appearance suggestive cirrhosis. Smaller liver with slight irregular undulating margins.. 3.mild splenomegaly--15 cm in length 3.Cholelithiasis. Small 5 mm gallstone within a contracted gallbladder. No biliary ductal dilatation 4. Nonspecific nodules right lung base. Warrant follow-up CT chest further evaluate for other nodules or additional chest findings Dictated by: Nic Novak MD 04/01/2019 13:18 Electronically signed by Nic Novak MD in [place] 04/01/2019 13:18 - Constitutional no acute distress, disheveled, cooperative - *Routine HEENT Exam Head: Present: normocephalic, atraumatic. Absent: facial swelling Eye: Present: EOMI ENT: Present: mucous membranes dry - *Routine Neck Exam Present: supple, full ROM - Routine Chest/Breast/Axilla Exam Chest wall: Present: pacemaker. Absent: tenderness, mass - *Routine Respiratory Exam Present: CTA bilaterally. Absent: accessory muscle use, rhonchi, stridor, wheezes - *Routine Cardiovascular Exam Present: RRR - *Routine Abdominal Exam Present: soft, distended. Absent: tenderness, firm, rigid, mass, hernia - *Routine Skin Exam Present: intact, dry, warm. Absent: jaundice - *Routine Neurological Exam Present: alert, altered mental status, abnormal gait, normal speech. Absent: facial asymmetry Patient knows his name and knows his birthday and knows he is in the hospital. He does not know which hospital and does not know how old he is Internal Medicine - CN: Reslt - Labs CBC & Chem 7: 04/02/19 05:35 04/02/19 05:35 Labs: Short CBC 04/02/19 Range/Units 05:35 WBC 5.0 D (4.8-10.8) K/mm3 Hgb 11.4 L D (14.1-18.0) g/dL Hct 33.8 L (42.0-52.0) % Plt Count 226 D (142-424) K/mm3 BMP 11/18/19 05:35 Sodium 141 Potassium 3.2 L Chloride 104 Carbon Dioxide 28 BUN 11 Creatinine 1.30 Glucose 96 D Calcium 7.5 L D Liver Function 04/02/19 Range/Units 05:35 Total Bilirubin 0.6 (0.2-1.0) mg/dL AST 31 (15-37) U/L ALT 14 (12-78) U/L Alkaline Phosphatase 92 (46-116) U/L Albumin 2.5 L D (3.4-5.0) gm/dL Assessment and Plan (1) Systolic congestive heart failure Current visit: Yes Status: Acute Category: Medical Code(s): I50.20 - Unspecified systolic (congestive) heart failure (2) Altered mental status Current visit: Yes Status: Acute Qualifiers: Altered mental status type: unspecified Qualified Code(s): R41.82 - Altered mental status, unspecified Category: Medical Code(s): R41.82 - Altered mental status, unspecified (3) Ascites Current visit: Yes Status: Acute Qualifiers: Ascites type: other type Qualified Code(s): R18.8 - Other ascites Category: Medical Code(s): R18.8 - Other ascites Ascites appears to surround both liver and spleen and stomach with probable cirrhosis on CT scan with possible mild splenomegaly. Recommend paracentesis with protein albumin cell count with differential and culture for better evaluation of the fluid. Does have an elevated BNP of 353 and has not been on diuretics even given his history of CHF. But I believe ascites more likely related to liver given the cirrhotic appearance and/or probable liver lesions. He did have a meld score of 12 upon arrival. He would likely not be a candidate for transplant given his age and comorbidities. Recommend upon discharge patient be started on a low-sodium diet and 50 mg of spironolactone along with 20 mg of Lasix daily. However, the reports he has refused diuretics. The patient will need outpatient follow-up in the GI office depending on further findings as well. (4) Hypokalemia Current visit: Yes Status: Acute Category: Medical Code(s): E87.6 - Hypok alemia (5) Liver mass Current visit: Yes Status: Acute Category: Medical Code(s): R16.0 - Hepatomegaly, not elsewhere classified Multiple possible liver lesions noted on CT scan although with some artifact. Likely cirrhosis on CT scan as well. Recommend right upper quadrant ultrasound. Patient has pacemaker and cannot undergo MRI. Will check AFP, CEA, CA 199. Possible lesions noted in the lungs and possibly spine as well. Depending on findings from fluid withdrawal during paracentesis, conjunction with ultrasound findings, patient may need referral to oncology. (6) Pulmonary nodule Current visit: Yes Status: Acute Category: Medical Code(s): R91.1 - Solitary pulmonary nodule (7) Weakness Current visit: Yes Status: Acute Category: Medical Code(s): R53.1 - Weakness
[2019-04-03 06:22] LABS: Basophils % 0.1 % (0.1-2.0); Eosinophils % 0.1 % (0.1-12.0); Hematocrit 35.8 % (42.0-52.0); Hemoglobin 11.9 g/dL (14.1-18.0); Lymphocytes # 0.9 K/mm3 (0.7-4.5); Lymphocytes % 8.6 % (10-50); Mean Corpuscular HGB Conc 33.2 g/dL (31.8-35.4); Mean Corpuscular Volume 94.9 fl (80-94); Monocytes # 0.6 K/mm3 (0.1-1.0); Monocytes % 5.9 % (1.7-9.3); Neutrophils # 8.4 K/mm3 (1.8-7.8); Neutrophils % 85.3 % (37.0-80.0); Platelet Count 240 K/mm3 (142-424); Red Blood Count 3.78 M/mm3 (4.60-6.20); White Blood Count 9.9 K/mm3 (4.8-10.8)
--- NOTE | 2019-04-03 06:59 | Cardiology Report ---
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 Operator Outside: Maegan Brody RDCS Ht: 6 ft 1 in Wt: 188lbs BSA: 2.10 BP: 136/81 mmHg Indications: Diabetes, CAD, Cardiomyopathy,chf,CABG 2D Dimensions LVOT 2.15 cm (M/F) 1.5-2.5 M-Mode Dimensions RVDd 3.87 cm (0.9-2.6)LVDd 4.16 cm (3.5-5.7) LVDs 4.04 cm (3.5-5.7)IVSd 1.78 cm (0.6-1.1) PWd 1.40 cm (0.6-1.1)EF (Teich) 6.60% FS 2.90% EDV (Teich) 76.80 mL ESV (Teich) 71.70 mL LV Diastology E/A Ratio 0.61 Mitral Valve MV A Velocity 142.00 (40-130 cm/s)MV PHT 112.00 ms Left Ventricle Left atrium is mildly enlarged, left ventricle is normal size, mild concentric left ventricular hypertrophy, visually estimated ejection fraction 40 to 45%, there is marked hypokinesis involving mid to distal septum, anteroapical and apical wall. Doppler evidence of impaired LV relaxation seen, there is no tissue Doppler performed. Right Ventricle Right atrium and right ventricular normal size and contractility, there is a pacemaker lead seen in the right ventricle. Aortic Valve Aortic valve is thickened and calcified, there is no aortic stenosis, there is mild aortic insufficiency. Mitral Valve Mitral valve has mitral annular calcification, which extends in the anterior posterior mitral leaflet, mitral inflow velocities not suggestive of mitral stenosis, there is mild mitral regurgitation. Tricuspid Valve Tricuspid valve is grossly normal, there is mild tricuspid regurgitation. Tricuspid regurgitation jet velocity is inadequate for calculation of the right ventricular systolic pressure. Pulmonic Valve Pulmonic valve is poorly visualized. Great Vessels Aortic root is normal size. Pericardium No significant pericardial effusion noted. Conclusion 1. Mildly enlarged left atrium, normal left ventricular size, mild concentric left ventricular hypertrophy, visually estimated ejection fraction 40 to 45% with multiple segmental wall motion abnormality described above, Doppler evidence of impaired LV relaxation seen, there is no tissue Doppler performed. 2. Thickened and calcified aortic valve without aortic stenosis, there is mild aortic insufficiency. 3. Mild mitral and tricuspid regurgitation. 4. No significant pericardial effusion noted. Electronically signed by : Hi Yoon, 04/03/2019 06:58:54
[2019-04-03 07:33] LABS: Albumin Level 2.4 gm/dL (3.4-5.0); Albumin/Globulin Ratio 0.7 (1.1-1.8); Anion Gap 10.4 mEq/L (5-15); Bilirubin,Total 0.6 mg/dL (0.2-1.0); Calcium 7.4 mg/dL (8.5-10.1); Globulin 3.3 gm/dl (1.3-3.2); Total Protein,Serum 5.7 gm/dL (6.4-8.2)
[2019-04-03 08:50] LABS: Lymphocytes % 13 % (10-50); Neutrophils % 85 % (42-76); RBC Morphology Normal; Total Cells Counted 100
--- NOTE | 2019-04-03 09:11 | Progress Note ---
Internal Medicine - PN: Subj *Date: 04/03/19 *Time: 09:07 Interval history: Patient did well overnight. Unfortunately however he refused certain medications including donepezil. Remains afebrile. Minimally interactive this morning on interview. Extensive discussion with was at bedside about goals of care. Planning for abdominal ultrasound today. N.p.o. currently. Denies chest pain, nausea, diarrhea. Exam Vital signs and Labs for Last 24 Hours: Temp Pulse Resp BP Pulse Ox 98.7 F 76 20 127/72 91 L 04/03/19 07:48 04/03/19 07:48 04/03/19 07:48 04/03/19 07:48 04/03/19 07:48 Laboratory Results - last 24 hr 04/01/19 20:04: POC Glucose 131 H 04/02/19 10:30: Fluid Source Peritoneal fluid, Fluid Volume 2225, Fluid Appearance Slightly hazy, Fluid RBC (Auto) < 10, Fld Tot Nucleated Cell 252, Fld Polynuclear WBCs % 0, Fld Mononuclear WBCs % 100 04/02/19 11:07: POC Glucose 144 H 04/02/19 16:36: POC Glucose 105 04/02/19 21:43: POC Glucose 125 H 04/03/19 06:00: WBC 9.9 D, RBC 3.78 L, Hgb 11.9 L, Hct 35.8 L, MCV 94.9 H, MCH 31.5 H, MCHC 33.2, RDW 14.0, Plt Count 240, MPV 8.0, Neut % (Auto) 85.3 H, Lymph % (Auto) 8.6 L, [place] % (Auto) 5.9, Eos % (Auto) 0.1, Baso % (Auto) 0.1, Neut # (Auto) 8.4 H, Lymph # (Auto) 0.9, [place] # (Auto) 0.6, Eos # (Auto) 0.0, Baso # (Auto) 0.0, Total Counted 100, Neutrophils % (Manual) 85 H, Lymphocytes % (Manual) 13, Metamyelocytes % 2.0 H, Platelet Estimate Normal, RBC Morphology Normal 04/03/19 06:00: Sodium 135 L, Potassium 3.4 L, Chloride 101, Carbon Dioxide 27, Anion Gap 10.4, BUN 14 D, Creatinine 1.43 H, Estimated Creat Clear 54, Est imated GFR 48 L, Est GFR ( Amer) 58 L, Glucose 153 H, Calcium 7.4 L, Total Bilirubin 0.6, AST 31, ALT 13, Alkaline Phosphatase 83, Total Protein 5.7 L, Albumin 2.4 L, Globulin 3.3 H, Albumin/Globulin Ratio 0.7 L 04/03/19 06:23: POC Glucose 151 H I & O for Last 24 hours: Intake & Output 03/31/19 04/01/19 04/02/19 04/03/19 23:59 23:59 23:59 23:59 Intake Total 320 / 320 2890 / 2890 949 / 949 Output Total 700 / 700 300 / 300 Balance 320 / 320 2190 / 2190 649 / 649 Weight 85.332 kg 86.75 kg 87.6 kg Microbiology Reports for the Last 24 Hours: Microbiology 04/02/19 10:30 Ascites Fluid - Abdominal Gram Stain - Final Narrative: Patient fully awake, responds to commands minimally, no evidence of rash, appears pale but no stigmata of liver disease on abdomen or chest. Pacemaker in place on the chest. Anterior lung julian are diminished air movement but clear. Heart rate irregular, no murmurs. Well-healed midline sternotomy scar Abdomen protuberant, nontender Extremities with trace ankle edema in the shins. Significant onychomycosis of all toenails. Warm and well-perfused distal extremities. Globally weak. Cranial nerves intact. No JVD. Oropharynx clear. Assessment and Plan (1) Systolic congestive heart failure Current visit: Yes Status: Acute Category: Medical Code(s): I50.20 - Unspecified systolic (congestive) heart failure (2) Altered mental status Current visit: Yes Status: Acute Qualifiers: Altered mental status type: unspecified Qualified Code(s): R41.82 - Altered mental status, unspecified Category: Medical Code(s): R41.82 - Altered mental status, unspecified (3) Ascites Current visit: Yes Status: Acute Qualifiers: Ascites type: other type Qualified Code(s): R18.8 - Other ascites Category: Medical Code(s): R18.8 - Other ascites (4) Hypokalemia Current visit: Yes Status: Acute Category: Medical Code(s): E87.6 - Hypokalemia (5) Liver mass Current visit: Yes Status: Acute Category: Medical Code(s): R16.0 - Hepatomegaly, not elsewhere classified (6) Pulmonary nodule Current visit: Yes Status: Acute Category: Medical Code(s): R91.1 - Solitary pulmonary nodule (7) Weakness Current visit: Yes Status: Acute Category: Medical Code(s): R53.1 - Weakness (8) Hypomagnesemia Current visit: Yes Status: Acute Category: Medical Code(s): E83.42 - Hypomagnesemia replace PRN today - Assessment and plan all Dx Assessment and Plan for all problems:: 78-year-old gentleman with multiple comorbidities that are life limiting in nature. Conditions include parkinsonism, ascites, cirrhosis, chronic systolic heart failure, prostate cancer. Undergoing ultrasound today to better quantify liver lesions to differentiate between cirrhosis versus liver cancer. Extensive discussion with this morning about goals of care. At this time discharge decision between alf and home with hospice. Continue medical management per orders. Replace electrolytes PRN. Remains hemodynamically stable. Continue to await cytology and lab studies on ascites fluid. Medical condition guarded. Prognosis poor. Patient made DNR yesterday.
--- NOTE | 2019-04-04 08:47 | Discharge Summary ---
General - General Admission date:: 04/01/19 Discharge date: 04/04/19 HPI HPI: 78-year-old white male, patient of Dr. Krishna Christine, who does not go see him on a regular basis-and in fact has not seen him for over a year, who has a history of CHF, ejection fraction 25% on echocardiogram 1 year ago, pacemaker dependent with replacement in April [address] [facility], and diabetes who was brought to the emergency department with a chief complaint of weakness, confusion and lethargy. He was found to have new onset ascites, with evidence of cirrhosis on CT scan of liver, but no significant electrolyte abnormalities except for low potassium at 2.5. Was very confused and weak and is admitted for work-up of the above problems. Lives at home with his who is his solitary mud grinder. reports that "he does nothing for himself." He is able to transfer with maximum assistance from her, but does not walk independently. Last year we did start donepezil for dementia, and apparently he still takes this but no other dementia services have been instituted, such as home health, PT or other medications. And as noted above he is not returned to his primary physician for reevaluation. However, he continues to receive refills on his medication. denies recent fevers, vomiting, diarrhea or rash. Hospital Course Hospital Course: Patient was admitted, extensive work-up was undertaken and patient was determined to have liver cirrhosis from an undetermined etiology. Ultrasound confirmed this finding, and cytology testing from paracentesis fluid is pending. Had discussions with and son regarding ongoing placement issues and further care given his significant comorbidities, terminal status from his CHF, liver cirrhosis, prostate cancer and Parkinson's with dementia, and after long discussions family decided to pursue hospice care at home. Hospice accepted the patient, and he will be discharged there today. Of note patient had a low-grade fever before discharge, no obvious source, we will do a urinalysis and culture and see what grows. I will not send home on antibiotics because of a high likelihood of a viral infection at this point, lungs were clear on discharge exam today and patient does not have a fever at the time of discharge. Please note the patient's primary physician is Dr. Krishna Christine and he will supervise the patient through his hospice care course. Objective Vital signs: Temp Pulse Resp BP Pulse Ox 100.3 F H 84 18 152/96 H 93 L 04/04/19 08:00 04/04/19 08:00 04/04/19 08:00 04/04/19 08:00 04/04/19 08:00 Narrative: Patient has parkinsonism tremor. Is pleasant and talkative this morning and slightly more alert. Remains disoriented. Oropharynx clear. Heart rate regular. Abdomen soft nontender. No extremity clubbing or cyanosis. Significant weakness in all 4 extremities. No rash noted. Lungs are clear in the anterior julian. Results Labs on day of discharge: Labs from last 24 hours 04/03/19 04/03/19 04/03/19 20:38 17:07 11:20 Total Counted Neutrophils % (Manual) Lymphocytes % (Manual) Metamyelocytes % Platelet Estimate RBC Morphology POC Glucose 99 102 155 H 04/03/19 06:00 Total Counted 100 Neutrophils % (Manual) 85 H Lymphocytes % (Manual) 13 Metamyelocytes % 2.0 H Platelet Estimate Normal RBC Morphology Normal POC Glucose Preliminary micro results at discharge 04/02/19 10:30 Body Fluid Culture - Preliminary Ascites Fluid - Abdominal NO GROWTH AFTER 24 HOURS 04/01/19 10:52 Blood Culture - Preliminary Blood NO GROWTH AFTER 48 HOURS 04/01/19 10:52 Blood Culture - Preliminary Blood NO GROWTH AFTER 48 HOURS DS: Diagnosis - Discharge Diagnosis (1) Systolic congestive heart failure Status: Chronic Problem details: Slightly improved after defibrillator placement last year with EF 45% (2) Altered mental status Status: Chronic Problem details: Dementia with parkinsonism (3) Ascites Status: Chronic Problem details: Ongoing liver cirrhosis. Please see GI notes. (4) Hypokalemia Status: Resolved (5) Liver mass Status: Chronic (6) Pulmonary nodule Status: Chronic (7) Weakness Status: Chronic (8) Hypomagnesemia Status: Resolved Discharge Plan - Patient Discharge Instructions ACTIVITY: Continue current activity, Up with assistance DIET: continue same diet Patient Instructions: DI for Ascites, DI for Hypokalemia, DI for Muscle Weakness, Low-Sodium Diet, DI for Altered Mental Status - Follow up Plan Follow up with: Krishna Christine [Primary Care Provider] - Disposition: Hospice - Home Home Medications: Home Medications Medication Instructions Recorded Confirmed Type Bisoprolol Fumarate [Bisoprolol 2.5 mg PO DAILY 02/16/18 04/01/19 History 5mg Tablet] Metformin HCl 500 mg PO BID 02/16/18 04/01/19 History Simvastatin 40 mg PO HS 02/16/18 04/01/19 History levETIRAcetam [Levetiracetam] 750 mg PO BID 02/16/18 04/01/19 History Aspirin [Aspirin 81mg EC Tab] 81 mg PO DAILY 02/17/18 04/01/19 History Donepezil HCl [Aricept 5mg 5 mg PO HS 04/02/19 04/02/19 History Tablet] Prescriptions/Medication Reconciliation: Continued levETIRAcetam [Levetiracetam] 750 mg PO BID Bisoprolol Fumarate [Bisoprolol 5mg Tablet] 2.5 mg PO DAILY Aspirin [Aspirin 81mg EC Tab] 81 mg PO DAILY Donepezil HCl [Aricept 5mg Tablet] 5 mg PO HS Discontinued Simvastatin 40 mg PO HS Metformin HCl 500 mg PO BID - Problem Reconciliation Problems Reviewed?: Yes
[2019-04-04 13:21] LABS: Microscopic, Urine URINE MICROSCOPIC (MICROSCOPIC)
[2019-04-04 13:23] LABS: Appearance,Urine TURBID (Clear); Bilirubin,Urine Negative (Negative); Blood, Urine 3+ (Negative); Color,Urine YELLOW (Yellow); Glucose,Urine (UA) Negative (Negative); Ketones,Urine 1+ (Negative); Leukocyte Esterase,Urine 2+ (Negative); PH,Urine 5.5 (5.0-8.5); Protein,Urine 2+ (Negative); Specific Gravity, Urine >= 1.030 (1.005-1.030); Urobilinogen,Urine 0.2 EU/dl (0.2)
[2019-04-04 13:34] LABS: WBC,Urine TNTC #/hpf (0-3)
[2019-04-04 13:35] LABS: Amorphous Sediment,Urine 2+ /lpf; Bacteria,Urine 1+ /lpf
== END 2019-04-04 15:20 | disposition hospice, home (50) | DRG 433 ==
LOC: ER 10:44 → 2ND 10:44 → OBSVTOIN 15:56 → 2ND 15:57
PROVIDERS: ADMIT Internal Medicine Adolescent Medicine; ATTEND Internal Medicine Adolescent Medicine
CPT/HCPCS: J2405